=== PATIENT | female | born 1995 | race Hispanic/Latino ===

== ENCOUNTER 2020-06-30 13:52 | Emergency (ER) | payer SELFPAY ==
--- NOTE | 2020-06-30 14:30 | RAD REPORT ---
EXAM DESCRIPTION: Yumiko Single View06/30/2020 2:24 pm CLINICAL HISTORY: CVA COMPARISON: 2007 FINDINGS: The lungs appear clear of acute infiltrate. The heart is normal size IMPRESSION: No acute abnormalities displayed
[2020-06-30] MEDS ORDERED: NA CHLORIDE 0.9% 1,000 ML ONE (14:32)
[2020-06-30 14:33] LABS: Absolute Lymphocytes (CBC) 2.8 K/uL (0.7-4.9); Basophils % 0.8 % (0-1.3); Hematocrit 41.6 % (36.0-45.0); Lymphocytes % 25.9 % (15.3-44.8); MPV 7.6 fL (7.6-11.3); RBC Red Blood Cell Count 4.65 M/uL (3.86-4.86)
[2020-06-30 14:37] LABS: Protime INR 0.97
--- NOTE | 2020-06-30 14:40 | RAD REPORT ---
EXAM DESCRIPTION: CT - Ct Stroke Brain Wo Cont - 06/30/2020 2:03 pm CLINICAL HISTORY: Confusion/alteration of awareness COMPARISON: 2013 TECHNIQUE: Computed axial tomography of the head was obtained. All CT scans are performed using dose optimization technique as appropriate and may include automated exposure control or mA/KV adjustment according to patient size. FINDINGS: An intracranial bleed is not seen . The ventricles are normal in caliber. No extra-axial fluid collection is noted. Fluid within the sinuses/ mastoids is not seen. IMPRESSION: No acute intracranial abnormality is seen. If patient's symptoms persist MRI of the bra in would be recommended. Dr Clark of the emergency room was notified at 2 p.m. June 30, 2020
[2020-06-30 14:50] LABS: BUN Blood Urea Nitrogen 12 mg/dL (7-18); Bicarbonate 23 mmol/L (21-32); Glucose Level 87 mg/dL (74-106); Lipase 41 U/L (73-393); Magnesium 2.2 mg/dL (1.8-2.4); Sodium Level 141 mmol/L (136-145); Troponin (Emerg Dept Use Only) < 0.02 ng/mL (0.0-0.045)
--- NOTE | 2020-06-30 15:24 | EDPHYS ---
Physician Documentation [facility] Name: Jennifer Celeste Age: 25 yrs Sex: Female : 1995 Arrival Date: 06/30/2020 Time: 13:53 Bed 4 Private MD: ED Physician Amena Clark HPI: 06/30 14:02 This 25 yrs old Female presents to ER via EMS with complaints of S/S of ma2 Possible Stroke. 14:02 The patient's problem is reported as visual difficulty, decreased vision in the left ma2 eye. Onset: The symptoms/episode began/occurred suddenly, 1 hour(s) ago. Duration: This was a single incident. Associated signs and symptoms: Pertinent negatives: agitation, chest pain, combativeness, confusion, diaphoresis. Severity of symptoms: At their worst the symptoms were mild in the emergency department the symptoms have improved markedly. The patient has not experienced similar symptoms in the past. 14:51 she states she has generalized weakness since 1 hour ago and right sided facial ma2 weakness that is affecting her ability to speak, she also feels lightheaded and "tired". her at bedside he states they both have been drinking alcohol heavily over the last 2 days until 4 am last night. he states "absolutely" on MJ or cocaine or recreation drugs.. however patient told the nurse that she smokes MJ 3 times weekly with and no other recreational drugs . 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 - Social history:: Patient/guardian denies using alcohol, street drugs, The patient lives with family, Smoking status: Patient denies any tobacco usage or history of. - Family history:: not pertinent. ROS: 14:02 Constitutional: Negative for fever, chills, and weight loss, Cardiovascular: Negative ma2 for chest pain, palpitations, and edema, Respiratory: Negative for shortness of breath, cough, wheezing, and pleuritic chest pain, Abdomen/GI: Negative for abdominal pain, nausea, diarrhea, and constipation. 14:02 All other systems are negative. Exam: 14:02 Radiologist reports: normal ma2 14:02 Constitutional: This is a well developed, well nourished patient who is awake, alert, and in no acute distress. Head/Face: Normocephalic, atraumatic. Eyes: Pupils equal round and reactive to light, extra-ocular motions intact. Lids and lashes normal. Conjunctiva and sclera are non-icteric and not injected. Cornea within normal limits. Periorbital areas with no swelling, redness, or edema. ENT: Nares patent. No nasal discharge, no septal abnormalities noted. Tympanic membranes are normal and external auditory canals are clear. Oropharynx with no redness, swelling, or masses, exudates, or evidence of obstruction, uvula midline. Mucous membranes moist. Neck: Trachea midline, no thyromegaly or masses palpated, and no cervical lymphadenopathy. Supple, full range of motion without nuchal rigidity, or vertebral point tenderness. No Meningismus. Chest/axilla: Normal chest wall appearance and motion. Nontender with no deformity. No lesions are appreciated. Cardiovascular: Regular rate and rhythm with a normal S1 and S2. No gallops, murmurs, or rubs. Normal PMI, no JVD. No pulse deficits. Respiratory: Lungs have equal breath sounds bilaterally, clear to auscultation and percussion. No rales, rhonchi or wheezes noted. No increased work of breathing, no retractions or nasal flaring. Abdomen/GI: Soft, non-tender, with normal bowel sounds. No distension or tympany. No guarding or rebound. No evidence of tenderness throughout. Back: No spinal tenderness. No costovertebral tenderness. Full range of motion. Skin: Warm, dry with normal turgor. Normal color with no rashes, no lesions, and no evidence of cellulitis. MS/ Extremity: Pulses equal, no cyanosis. Neurovascular intact. Full, normal range of motion. 14:51 Neuro: Awake but seems drousy, GCS 14, oriented to person, place, time, and situation. ma2 Cranial nerves exams shows right sided facial nerve palsy that includes the forehead i.e lower motor neuron pattern, and she has left sixth cranial nerve palsy.. she has diffuse weakness , Motor strength is 3/5 in all extremities. Sensory grossly intact. Cerebellar exam and gait not examined d/t patietn is drwosy. Vital Signs: 14:06 BP 113 / 90; Pulse 63; Resp 16; Temp 98.1; Pulse Ox 100% on R/A; Weight 79.38 kg; Pain hb 0/10; 15:00 BP 118 / 86; Pulse 64; Resp 15; Pulse Ox 99% on R/A; hb 16:00 BP 129 / 89; Pulse 61; Resp 15; Pulse Ox 99% on R/A; hb 17:00 BP 124 / 85; Pulse 66; Resp 16; Pulse Ox 100% on R/A; Pain 0/10; hb NIH Stroke Scale Scores: 15:13 NIHSS Score: 21 ma2 MDM: 13:59 Patient medically screened. [facility] 14:02 Differential diagnosis: Dementia, paralysis, metabolic disorder, drug effects. [facility] 14:51 Data reviewed: vital signs, nurses notes. Counseling: I had a detailed discussion with [facility] the patient and/or guardian regarding: the historical points, exam findings, and any diagnostic results supporting the discharge/admit diagnosis, the presence of at least one elevated blood pressure reading (>120/80) during this emergency department visit, the need to transfer to another facility. Response to treatment: There is no appreciated change of the patient's symptoms at this time. 15:06 ED course: . [facility] 15:06 ED course: she has weakness all over 3/5 both upper and lower extremities. and facial ma2 nerve palsy and sixth nerve palsy.. given the finding on exam and rapidly improving symptoms, and the fact that she woke up like his an hour prior to arrival to hospital and having drinking alcohol last night until 4 am. it is not clear when was she seen normal.. therefore we will hold off thrombolytics as risk weigh benefits. will transfer for higher level of care as she needs neuro eval.. no neurology available in our hospital . 15:18 ED course: discussed with dr. potter and dr. Greene neurologists and patient is accepted ma to the ER. . 06/30 14:01 Order name: UDS ma2 06/30 14:01 Order name: Troponin (emerg Dept Use Only); Complete Time: 14:51 [facility] 06/30 14:01 Order name: Magnesium; Complete Time: 14:51 [facility] 06/30 14:01 Order name: Lipase; Complete Time: 14:51 [facility] 06/30 14:01 Order name: Basic Metabolic Panel; Complete Time: 14:51 ma2 06/30 14:01 Order name: CBC with Diff; Complete Time: 14:51 dc2 06/30 14:01 Order name: Protime (+inr); Complete Time: 14:51 ma2 06/30 14:01 Order name: Ptt, Activated; Complete Time: 14:51 ma2 06/30 14:01 Order name: CT Stroke Brain w/o Contrast; Complete Time: 14:51 ma2 06/30 14:01 Order name: Stroke CXR 1 View; Complete Time: 14:33 ma2 06/30 14:26 Order name: Alcohol Level; Complete Time: 15:24 ma2 06/30 14:29 Order name: Glucose, Ancillary Testing; Complete Time: 14:33 EDMS 06/30 15:51 Order name: Urine Dipstick--Ancillary (enter results) eb 06/30 15:51 Order name: Urine --Ancillary (enter results) eb 06/30 14:01 Order name: Accucheck; Complete Time: 14:22 ma2 06/30 14:01 Order name: Cardiac monitoring; Complete Time: 14:22 ma2 06/30 14:01 Order name: EKG - Nurse/Tech; Complete Time: 16:29 ma2 06/30 14:01 Order name: IV Saline Lock; Complete Time: 14:22 dc2 06/30 14:01 Order name: Labs collected and sent; Complete Time: 14:22 ma2 06/30 14:01 Order name: NPO; Complete Time: 14:22 dc2 06/30 14:01 Order name: O2 Per Protocol; Complete Time: 14:22 ma2 06/30 14:01 Order name: O2 Sat Monitoring; Complete Time: 14:22 dc2 06/30 14:01 Order name: Stroke Swallow Screen; Complete Time: 16:29 ma2 Administered Medications: 14:32 Drug: NS 0.9% 1000 ml Route: IV; Rate: 1 bolus; Site: left hand; sv 15:40 Follow up: Response: No adverse reaction; IV Status: Completed infusion; IV Intake: hb 1000ml 14:33 CANCELLED (Physician Discretion): Ativan 1 mg IVP once sv Point of Care Testing: Blood Glucose: 14:20 Blood Glucose: 83 mg/dL; hb Ranges: Critical Glucose Levels:Adult <50 mg/dl or >400 mg/dl <40 mg/dl or >180 mg/dl Disposition: 06/30/20 15:24 Transfer ordered to [facility]. Diagnosis are Weakness, Disorder of facial nerve, unspecified - facial palsy. - Reason for transfer: Higher level of care. - Accepting physician is dr. Greene.. Dr. Cohn. - Condition is Stable. - Problem is new. - Symptoms are unchanged. NIH Stroke Scale - NIH Stroke Score Date: 06/30/2020 Time: 15:13 Total Score = 21 1a. Level of Consciousness (LOC) - 1(Not Alert) 1b. Level of Consciousness (LOC) (Year \\T\\ Age) - 2(Neither) 1c. LOC Commands (Open \\T\\ Closes Eyes/Pipe Washer) - 0(Both) 2. Best Gaze (Lateral Gaze Paresis) - 1(Partial gaze palsy) 3. Visual Field Loss - 0(No visual loss) 4. Facial Palsy - 2(Partial paralysis) 5a. Left Arm: Motor (10-second hold) - 3(No effort against gravity) 5b. Right Arm: Motor (10-second hold) - 3(No effort against gravity) 6a. Left Leg: Motor (5-second hold - always test supine) - 3(No effort against gravity) 6b. Right Leg: Motor (5-second hold - always test supine) - 3(No effort against gravity) 7. Limb Ataxia (finger/nose \\T\\ heel/johnson - test with eyes open) - 2(Present in two limbs) 8. Sensory Loss (pinprick arms/legs/face) - 0(Normal) 9. Best Language: Aphasia (description/naming/reading) - 1(Mild to moderate aphasia) 10. Dysarthria (speech clarity - read or repeat words) - 0(Normal) 11. Extinction and Inattention (visual/tactile/auditory/spatial/personal) - 0(No abnormality) Initials: vangie Signatures: Dispatcher [employer] Patricia Martinez RN RN sv Smirch, Shelby, RN RN ss Baxter, Heather, RN RN hb Alzahri, Mohammad, MD MD ma2 Corrections: (The following items were deleted from the chart) 14:33 14:01 Ativan 1 mg IVP once ordered. ma2 sv 14:33 14:33 Ativan 1 mg IVP once ordered. sv sv 15:10 14:02 Constitutional: This is a well developed, well nourished patient who is ma2 awake, alert, and in no acute distress. Head/Face: Normocephalic, atraumatic. Eyes: Pupils equal round and reactive to light, extra-ocular motions intact. Lids and lashes normal. Conjunctiva and sclera are non-icteric and not injected. Cornea within normal limits. Periorbital areas with no swelling, redness, or edema. ENT: Nares patent. No nasal discharge, no septal abnormalities noted. Tympanic membranes are normal and external auditory canals are clear. Oropharynx with no redness, swelling, or masses, exudates, or evidence of obstruction, uvula midline. Mucous membranes moist. Neck: Trachea midline, no thyromegaly or masses palpated, and no cervical lymphadenopathy. Supple, full range of motion without nuchal rigidity, or vertebral point tenderness. No Meningismus. Chest/axilla: Normal chest wall appearance and motion. Nontender with no deformity. No lesions are appreciated. Cardiovascular: Regular rate and rhythm with a normal S1 and S2. No gallops, murmurs, or rubs. Normal PMI, no JVD. No pulse deficits. Respiratory: Lungs have equal breath sounds bilaterally, clear to auscultation and percussion. No rales, rhonchi or wheezes noted. No increased work of breathing, no retractions or nasal flaring. Abdomen/GI: Soft, non-tender, with normal bowel sounds. No distension or tympany. No guarding or rebound. No evidence of tenderness throughout. Back: No spinal tenderness. No costovertebral tenderness. Full range of motion. Skin: Warm, dry with normal turgor. Normal color with no rashes, no lesions, and no evidence of cellulitis. MS/ Extremity: Pulses equal, no cyanosis. Neurovascular intact. Full, normal range of motion. Neuro: Awake and alert, GCS 15, oriented to person, place, time, and situation. Cranial nerves II-XII grossly intact. Motor strength 5/5 in all extremities. Sensory grossly intact. Cerebellar exam normal. Normal gait. dc2 15:10 14:51 Neuro: Awake but seems drousy, GCS 14, oriented to person, place, time, ma2 and situation. Cranial nerves exams shows right sided facial nerve palsy that includes the forehead.. she has diffuse weakness , Motor strength is 3/5 in all extremities. Sensory grossly intact. Cerebellar exam and gait not examined d/t patietn is keisha. ma2 17:18 15:24 06/30/2020 15:24 Transfer ordered to [facility]. Diagnosis ss is Weakness; Disorder of facial nerve, unspecified - facial palsy. Reason for transfer: Higher level of care. Accepting physician is dr. Greene.. Dr. Cohn. Condition is Stable. Problem is new. Symptoms are unchanged. ma2
--- NOTE | 2020-06-30 15:24 | ER ---
Nurse's Notes [facility] Name: Jennifer Celeste Age: 25 yrs Sex: Female : 1995 Arrival Date: 06/30/2020 Time: 13:53 Bed 4 Private MD: Diagnosis: Weakness;Disorder of facial nerve, unspecified-facial palsy Presentation: 06/30 13:42 The patients blood glucose was checked before arriving to the hospital and was found to sv be normal. 13:54 Chief complaint: EMS states: slurred speech, left arm weakness, unable to see out of sv the left eye started 35 mins ago. Spouse stated to EMS that they had been drinking days prior but none today. An acute neurological deficit is present. The charge nurse has been notified. Risk Assessment: Do you want to hurt yourself or someone else? Patient reports no desire to harm self or others. Onset of symptoms was June 30, 2020. 13:54 Method Of Arrival: EMS: [facility] sv 13:54 Acuity: JONNY 2 sv 14:30 Coronavirus screen: At this time, the client does not indicate any symptoms associated hb with coronavirus-19. Ebola Screen: No symptoms or risks identified at this time. Initial Sepsis Screen: Does the patient meet any 2 criteria? No. Patient's initial sepsis screen is negative. Does the patient have a suspected source of infection? No. Patient's initial sepsis screen is negative. Triage Assessment: 17:00 General: Appears. 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 - Social history:: Patient/guardian denies using alcohol, street drugs, The patient lives with family, Smoking status: Patient denies any tobacco usage or history of. - Family history:: not pertinent. Screenin:31 Abuse screen: Denies threats or abuse. Denies injuries from another. Nutritional ss screening: No deficits noted. Tuberculosis screening: Never had TB. Fall Risk Fall in past 12 months (25 points). Secondary diagnosis (15 points) impaired mobility, IV access (20 points). Ambulatory Aid- None/Bed Rest/Nurse Assist (0 pts). Gait- Normal/Bed Rest/Wheelchair (0 pts) Mental Status- Oriented to own ability (0 pts). 16:29 Patient has been NPO before screening. The patient is alert, able to follow commands. hb The patient does not exhibit slurred or garbled speech The patient is not exhibiting difficulty speaking. The patient does not exhibit difficulty understanding words. The patient is able to swallow own secretions with no drooling or need for suction. Patient tolerated one teaspoon of water. No drooling, immediate coughing, gurgling, or clearing of the throat was noted. The patient tolerated 90mL of water. No drooling, immediate coughing, gurgling, or clearing of the throat was noted. The patient passed the bedside swallow screening. Oral medications may be given as ordered. Contact Physician for further diet orders. Assessment: 13:58 Reassessment: Pt back from CT. sv 14:17 Reassessment: BGL 83. hb 14:30 Reassessment: Pt reports she went to bed at 0300 and woke up at 1130 today c/o ss dizziness and fell because she was dizzy at 1150. Denies pain. 15:00 Reassessment: Patient appears in no apparent distress at this time. No changes from hb previously documented assessment. Patient and/or family updated on plan of care and expected duration. Pain level reassessed. 16:10 Reassessment: Patient appears in no apparent distress at this time. No changes from hb previously documented assessment. Patient and/or family updated on plan of care and expected duration. Pain level reassessed. 17:00 Reassessment: Patient appears in no apparent distress at this time. Patient and/or hb family updated on plan of care and expected duration. Pain level reassessed. Patient is alert, oriented x 3, equal unlabored respirations, skin warm/dry/pink. Vital Signs: 14:06 BP 113 / 90; Pulse 63; Resp 16; Temp 98.1; Pulse Ox 100% on R/A; Weight 79.38 kg; Pain hb 0/10; 15:00 BP 118 / 86; Pulse 64; Resp 15; Pulse Ox 99% on R/A; hb 16:00 BP 129 / 89; Pulse 61; Resp 15; Pulse Ox 99% on R/A; hb 17:00 BP 124 / 85; Pulse 66; Resp 16; Pulse Ox 100% on R/A; Pain 0/10; hb NIH Stroke Scale Scores: 15:13 NIHSS Score: 21 ma2 ED Course: 13:53 Patient arrived in ED. ds1 13:59 Amena Clark MD is Attending Physician. ma2 14:00 Triage completed. sv 14:01 Arm band placed on. sv 14:04 CT Stroke Brain w/o Contrast In Process Unspecified. EDMS 14:16 Missed attempt(s): 20 gauge in left antecubital area. Bleeding controlled, band aid hb applied, catheter tip intact. 14:18 Inserted saline lock: 22 gauge in left hand, using aseptic technique. Blood collected. hb 14:18 Inserted saline lock: 22 gauge in right upper arm, using aseptic technique. hb 14:19 Lalitha Gan, RN is Primary Nurse. hb 14:22 Stroke CXR 1 View Sent. hb 14:24 Stroke CXR 1 View In Process Unspecified. EDMS 14:31 Patient has correct armband on for positive identification. Placed in gown. Bed in low ss position. Call light in reach. Side rails up X2. monitoring tech on. Pulse ox on. NIBP on. Warm blanket given. 15:05 initiated a transfer with Laquita Gates Rn from the [facility]. eb 15:14 connected the neuro team environmental consultant for [facility] with Dr. Clark for patient eb transfer consultation. 15:22 administrative approval given by Laquita Gates Rn/ patient has been accepted to [facility] Er/ Dr. Guido has accepted the patient in transfer/ report to be called to [phone]. 17:00 No provider procedures requiring assistance completed. Patient transferred, IV remains hb in place. Administered Medications: 14:32 Drug: NS 0.9% 1000 ml Route: IV; Rate: 1 bolus; Site: left hand; sv 15:40 Follow up: Response: No adverse reaction; IV Status: Completed infusion; IV Intake: hb 1000ml 14:33 CANCELLED (Physician Discretion): Ativan 1 mg IVP once sv Point of Care Testing: Blood Glucose: 14:20 Blood Glucose: 83 mg/dL; hb Ranges: Intake: 15:40 IV: 1000ml; Total: 1000ml. hb Outcome: 15:24 ER care complete, transfer ordered by . ma2 17:[address] [facility]. hb 17:00 Condition: stable 17:00 Instructed on the need for transfer, Demonstrated understanding of instructions. 17:18 Patient left the ED. NIH Stroke Scale - NIH Stroke Score Date: 06/30/2020 Time: 15:13 Total Score = 21 1a. Level of Consciousness (LOC) - 1(Not Alert) 1b. Level of Consciousness (LOC) (Year \T\ Age) - 2(Neither) 1c. LOC Commands (Open \T\ Closes Eyes/Plumber) - 0(Both) 2. Best Gaze (Lateral Gaze Paresis) - 1(Partial gaze palsy) 3. Visual Field Loss - 0(No visual loss) 4. Facial Palsy - 2(Partial paralysis) 5a. Left Arm: Motor (10-second hold) - 3(No effort against gravity) 5b. Right Arm: Motor (10-second hold) - 3(No effort against gravity) 6a. Left Leg: Motor (5-second hold - always test supine) - 3(No effort against gravity) 6b. Right Leg: Motor (5-second hold - always test supine) - 3(No effort against gravity) 7. Limb Ataxia (finger/nose \T\ heel/johnson - test with eyes open) - 2(Present in two limbs) 8. Sensory Loss (pinprick arms/legs/face) - 0(Normal) 9. Best Language: Aphasia (description/naming/reading) - 1(Mild to moderate aphasia) 10. Dysarthria (speech clarity - read or repeat words) - 0(Normal) 11. Extinction and Inattention (visual/tactile/auditory/spatial/personal) - 0(No abnormality) Initials: ma2 Signatures: Dispatcher [employer] Patricia Martinez, Lina Wade RN, Shelby, RN RN Lalitha Gan RN RN Amena Clark MD MD ma2 Sosa Pina Corrections: (The following items were deleted from the chart) 15:24 15:05 initiated a transfer with Laquita Ruff Rn from the [facility]. eb
[2020-06-30 15:54] LABS: Urine Blood TRACE (NEG); Urine Glucose NEGATIVE (NEG); Urine Protein NEGATIVE (NEG)
[2020-06-30 16:03] LABS: Barbiturates NEGATIVE (NEGATIVE); Benzodiazepines NEGATIVE (NEGATIVE); Cocaine NEGATIVE (NEGATIVE); METHAMPHETAM NEGATIVE (NEGATIVE); Methadone NEGATIVE (NEGATIVE); Opiates NEGATIVE (NEGATIVE); Phencyclidine NEGATIVE (NEGATIVE); THC Cannibis POSITIVE (NEGATIVE)
[2020-07-03 19:37] VITALS: TEMP 98.1
[2020-07-03 19:40] VITALS: BP 124/85; O2SAT 100
== END 2020-06-30 17:18 | disposition short-term general hospital (02) ==
LOC: ER 13:52
DX: G51.0 Bell's palsy (principal)
CPT/HCPCS: 36415; 70450; 71045; 80048; 80307; 80320; 81003; 81025; 82947; 83690; 83735; 84484; 85025; 85610; 85730; 96360; 99285; J7030

== ENCOUNTER 2021-03-26 07:32 | Emergency (ER) | payer OTHER ==
--- OUTSIDE RECORDS SUMMARY | 2021-03-26 07:35 | XMS REPORT | Continuity of Care Document ---
:1995 Author Organization [facility] t Address [address] [place] [address] Care Team Providers Name Role Phone Unavailable Unavailable Unavailable Problems This patient has no known problems. Allergies, Adverse Reactions, Alerts This patient has no known allergies or adverse reactions. Medications Ordered Filled Start Stop Current Ordering Indication Dosage Frequency Signature Comments Components Source Medication Medication Date Date Medication? Clinician (SIG) Name Name Atorvastati Atorvastati Yes Will TAKE [address] [facility] Calcium n Calcium [place] TABLET BY [facility] EVERY DAY l AT BEDTIME Outpati ent Clinics Aspir-81 Aspir-81 Yes Will [address] [facility] Procedures This patient has no known procedures. Encounters Start End Encounter Admission Attending Care Care Encounter Source Date/Time Date/Time Type Type Clinicians Facility Department ID 2020-09-23 2020-09-23 Outpatient [facility] [id number] [facility] 2020-07-15 2020-07-15 [facility] [id number] [facility] [address] 11[facility]00 11:00[facility]00 [facility] [facility] Outpati ent Clinics Results This patient has no known results.
[2021-03-26 08:08] LABS: Urine Blood 1+ (Negative); Urine Glucose Negative (Negative); Urine Specific Gravity 1.025 (1.005-1.030)
[2021-03-26 08:09] LABS: Urine Protein Negative (Negative); Urine pH 5.5 (5.0-7.0)
[2021-03-26 08:32] LABS: Absolute Lymphocytes (CBC) 1.3 K/uL (0.7-4.9); Basophils % 0.3 % (0-1.3); Hematocrit 40.8 % (36.0-45.0); Lymphocytes % 8.8 % (15.3-44.8); MPV 7.8 fL (7.6-11.3); RBC Red Blood Cell Count 4.58 M/uL (3.86-4.86)
[2021-03-26] MEDS ORDERED: HYDROCODONE/CHLORPHEN 5 ML/OSYR ONE (08:33)
[2021-03-26] MEDS ORDERED: ACETAMINOPHEN 325 MG TABLET ONE (08:33)
[2021-03-26 09:00] LABS: BUN Blood Urea Nitrogen 14 mg/dL (7-18); Bicarbonate 24 mmol/L (21-32); Glucose Level 100 mg/dL (74-106); Potassium 3.9 mmol/L (3.5-5.1); Sodium Level 138 mmol/L (136-145)
[2021-03-26 09:01] LABS: Urine Specific Gravity/Preg 1.025 (1.005-1.030)
--- NOTE | 2021-03-26 10:20 | ER ---
Nurse's Notes [facility] Name: Jennifer Celeste Age: 25 yrs Sex: Female : 1995 Arrival Date: 03/26/2021 Time: 07:36 Bed 20 Private MD: Diagnosis: Acute pharyngitis. Leukocytosis Presentation: 03/26 07:41 Chief complaint: Patient states: sore throat, chest pain, productive cough-clear sv sputum, frontal headache x 2-3 days. Coronavirus screen: Client denies travel out of the [place] in the last 14 days. Client presents with at least one sign or symptom that may indicate coronavirus-19. Standard/surgical mask placed on the client. Provider contacted for isolation considerations. Ebola Screen: No symptoms or risks identified at this time. Risk Assessment: Do you want to hurt yourself or someone else? Patient reports no desire to harm self or others. Onset of symptoms was March 23, 2021. 07:41 Method Of Arrival: Ambulatory sv 07:41 Acuity: JONNY 3 sv 08:10 Initial Sepsis Screen: Does the patient meet any 2 criteria? No. Patient's initial kg sepsis screen is negative. Does the patient have a suspected source of infection? No. Patient's initial sepsis screen is negative. Triage Assessment: 07:43 General: Appears in no apparent distress. uncomfortable, Behavior is calm, cooperative, sv appropriate for age. EENT: Reports pain in throat. Neuro: Level of Consciousness is awake, alert, obeys commands, Gait is steady. Respiratory: Respiratory effort is even, unlabored. 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 - Social history:: Smoking status: Patient reports the use of cigarette tobacco products, denies chronic smoking, but will smoke occasionally. Screenin:09 Abuse screen: Denies threats or abuse. Denies injuries from another. Nutritional kg screening: No deficits noted. Tuberculosis screening: No symptoms or risk factors identified. Fall Risk None identified. No fall in past 12 months (0 pts). No secondary diagnosis (0 pts). IV access (20 points). Ambulatory Aid- None/Bed Rest/Nurse Assist (0 pts). Gait- Normal/Bed Rest/Wheelchair (0 pts) Mental Status- Oriented to own ability (0 pts). Total Narayanan Fall Scale indicates No Risk (0-24 pts). Assessment: 07:58 General: Appears in no apparent distress. Behavior is calm, cooperative, appropriate kg for age. Pain: Complains of pain in neck Pain does not radiate. Pain currently is 6 out of 10 on a pain scale. at worst was 8 out of 10 on a pain scale. level that patient reports is acceptable is 3 out of 10 on a pain scale. Quality of pain is described as "Feels like I'm swallowing glass" Pain began 2-3 days ago. Neuro: No deficits noted. Level of Consciousness is awake, alert, obeys commands, Oriented to person, place, time, situation. Cardiovascular: No deficits noted. Heart tones S1 S2. Respiratory: Reports cough that is productive, Airway is patent Respiratory effort is even, unlabored, relaxed, Respiratory pattern is regular, Breath sounds are clear bilaterally. GI: No deficits noted. : No deficits noted. EENT: Throat is pink has enlarged tonsils Reports difficulty swallowing since one week. Derm: No deficits noted. Musculoskeletal: No deficits noted. 09:55 Reassessment: Patient and/or family updated on plan of care and expected duration. Pain ap3 level reassessed. patient ambulated to restroom. . Vital Signs: 07:41 Weight 74.84 kg; Height 5 ft. 0 in. (152.40 cm); Pain 7/10; sv 08:09 Temp 99.3(O); kg 08:51 BP 122 / 91; Pulse 118; Pulse Ox 100% on R/A; ap3 09:52 BP 110 / 75; Pulse 71; Pulse Ox 97% on R/A; ap3 07:41 Body Mass Index 32.22 (74.84 kg, 152.40 cm) sv ED Course: 07:36 Patient arrived in ED. mr 07:42 Triage completed. sv 07:43 Arm band placed on. sv 07:49 Fay Talbert is Primary Nurse. kg 07:49 Tom Mckeon MD is Attending Physician. pkl 08:10 Patient has correct armband on for positive identification. Placed in gown. Bed in low kg position. Call light in reach. Side rails up X 1. 08:15 Inserted saline lock: 20 gauge in right upper arm, using aseptic technique. kg 08:43 XRAY CXR (1 view) In Process Unspecified. EDMS 10:14 Throat Culture Sent. sv 10:26 No provider procedures requiring assistance completed. Patient did not have IV access ap3 during this emergency room visit. intact, bleeding controlled, No redness/swelling at site. Pressure dressing applied. Administered Medications: 08:16 Drug: Tylenol 650 mg Route: PO; ap3 09:46 Follow up: Response: No adverse reaction; Marked relief of symptoms kg 08:16 Drug: Tussionex Pennkinetic ER (chlorpheniramine-hydrocodone) 5 ml Route: PO; ap3 09:46 Follow up: Response: No adverse reaction; Marked relief of symptoms kg Outcome: 10:20 Discharge ordered by . pkl 10:27 Discharged to home ambulatory. ap3 10:27 Condition: good 10:27 Discharge instructions given to patient, Instructed on discharge instructions, follow up and referral plans. no drinking with medication, medication usage, Demonstrated understanding of instructions, follow-up care, medications, Prescriptions given X 1. 10:29 Patient left the ED. ap3 Signatures: Dispatcher [employer] Patricia Martinez, Tom Brown RN, MD MD pkl Maria Isabel Milan mr Mya Avalos RN RN ap3 Fay Talbert kg
--- NOTE | 2021-03-26 10:20 | EDPHYS ---
Physician Documentation [facility] Name: Jennifer Celeste Age: 25 yrs Sex: Female : 1995 Arrival Date: 03/26/2021 Time: 07:36 Bed 20 Private MD: ED Physician Tom Mckeon HPI: 03/26 08:01 This 25 yrs old Female presents to ER via Ambulatory with complaints of Cough, pkl Sore Throat. 08:01 The patient or guardian reports cough, with productive sputum, that is white. Onset: pkl The symptoms/episode began/occurred 2 day(s) ago. Associated signs and symptoms: Pertinent positives: rhinorrhea, sore throat. 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 - Social history:: Smoking status: Patient reports the use of cigarette tobacco products, denies chronic smoking, but will smoke occasionally. ROS: 08:01 Eyes: Negative for injury, pain, redness, and discharge. pkl 08:01 ENT: Positive for nasal discharge, sore throat. 08:01 Neck: Negative for stiffness. 08:01 Cardiovascular: Negative for chest pain. 08:01 Respiratory: Positive for cough, with clear sputum. 08:01 Abdomen/GI: Negative for abdominal pain, nausea, vomiting, and diarrhea. 08:01 Back: Negative for acute changes. 08:01 : Negative for urinary symptoms. 08:01 MS/extremity: Negative for acute changes. 08:01 Skin: Negative for rash. 08:01 Neuro: Positive for headache, of the frontal. Exam: 08:01 Head/Face: Normocephalic, atraumatic. Eyes: Pupils equal round and reactive to light, pkl extra-ocular motions intact. Lids and lashes normal. Conjunctiva and sclera are non-icteric and not injected. Cornea within normal limits. Periorbital areas with no swelling, redness, or edema. 08:01 ENT: Posterior pharynx: erythema, that is mild. 08:01 Neck: Exam negative for nuchal rigidity. 08:01 Chest/axilla: Exam negative for acute changes. 08:01 Cardiovascular: Rate: normal, Rhythm: regular. 08:01 Respiratory: the patient does not display signs of respiratory distress, Respirations: normal, Breath sounds: are clear throughout. 08:01 Abdomen/GI: Bowel sounds: normal, Palpation: abdomen is soft and non-tender, in all quadrants. 08:01 Back: Exam negative for acute changes. 08:01 : Exam negative for acute changes. 08:01 Musculoskeletal/extremity: Exam is negative for acute changes. 08:01 Skin: Exam negative for rash. 08:01 Neuro: Orientation: is normal, Mentation: is normal, Cranial nerves: grossly normal, Motor: is normal. Vital Signs: 07:41 Weight 74.84 kg; Height 5 ft. 0 in. (152.40 cm); Pain 7/10; sv 08:09 Temp 99.3(O); kg 08:51 BP 122 / 91; Pulse 118; Pulse Ox 100% on R/A; ap3 09:52 BP 110 / 75; Pulse 71; Pulse Ox 97% on R/A; ap3 07:41 Body Mass Index 32.22 (74.84 kg, 152.40 cm) sv MDM: 07:49 Patient medically screened. pkl 10:17 Data reviewed: vital signs, nurses notes, lab test result(s), radiologic studies, plain pkl films. ED course: Discussed lab and X' rays results with patient. Advised to follow up with PCP in 2 to 3 days. Patient understood instructions. 03/26 08:00 Order name: CBC with Diff; Complete Time: 09:50 pkl 03/26 08:00 Order name: Chem 7; Complete Time: 09:50 pkl 03/26 08:00 Order name: Strep; Complete Time: 09:50 pkl 03/26 08:08 Order name: Urine Dipstick-Ancillary; Complete Time: 08:16 EDMS 03/26 08:18 Order name: Urine --Ancillary (enter results); Complete Time: 09:50 bd 03/26 08:00 Order name: XRAY CXR (1 view) pkl 03/26 09:21 Order name: Throat Culture EDMS Administered Medications: 08:16 Drug: Tylenol 650 mg Route: PO; ap3 09:46 Follow up: Response: No adverse reaction; Marked relief of symptoms kg 08:16 Drug: Tussionex Pennkinetic ER (chlorpheniramine-hydrocodone) 5 ml Route: PO; ap3 09:46 Follow up: Response: No adverse reaction; Marked relief of symptoms kg Disposition: 03/26/21 10:20 Discharged to Home. Impression: Acute pharyngitis. Leukocytosis. - Condition is Stable. - Prescriptions for Zithromax Z- Eloy 250 mg Oral Tablet - take 1 tablet by ORAL route as directed for 5 days Day 1 - take two (2) tablets one time. Day 2, 3, 4 , 5 take one (1) tablet once daily.; 6 tablet. - Medication Reconciliation Form, Thank You Letter, Antibiotic Education, Prescription Opioid Use, Family Work Release form. - Follow up: Private Physician; When: 2 - 3 days; Reason: Re-evaluation by your physician. - Problem is new. - Symptoms have improved. Signatures: Dispatcher [employer] Patricia Martinez RN RN Tom Mckeon MD MD pkl Mya Avalos RN RN ap3 Fya Talbert kg Corrections: (The following items were deleted from the chart) 10:29 10:20 03/26/2021 10:20 Discharged to Home. Impression: Acute pharyngitis. Leukocytosis. ap3 Condition is Stable. Forms are Medication Reconciliation Form, Thank You Letter, Antibiotic Education, Prescription Opioid Use. Follow up: Private Physician; When: 2 - 3 days; Reason: Re-evaluation by your physician. Problem is new. Symptoms have improved. pkl
--- NOTE | 2021-03-26 10:39 | RAD REPORT ---
EXAM DESCRIPTION: RAD - Chest Single View - 03/26/2021 8:42 am CLINICAL HISTORY: COUGH Chest pain. COMPARISON: Chest Single View dated 06/30/2020; CHEST PA AND LAT 2 VIEW dated 09/30/2008 FINDINGS: Portable technique limits examination quality. The lungs are grossly clear. The heart is normal in size. No displaced fractures. IMPRESSION: No acute intrathoracic process suspected.
[2021-03-26 10:52] VITALS: TEMP 99.3
[2021-03-26 10:56] VITALS: BP 110/75; O2SAT 97
== END 2021-03-26 10:29 | disposition home or self-care (01) ==
LOC: ER 07:32
DX: D72.829 Elevated white blood cell count, unspecified (principal); F17.210 Nicotine dependence, cigarettes, uncomplicated; Z86.73 Personal history of transient ischemic attack (TIA), and cerebral infarction without residual deficits
CPT/HCPCS: 36415; 71045; 80048; 81003; 81025; 85025; 87070; 87081; 99284

== ENCOUNTER 2021-09-04 17:01 | Emergency (ER) | payer OTHER ==
[2021-09-04] MEDS ORDERED: DICYCLOMINE HCL 10 MG CAP ONE (17:55)
[2021-09-04] MEDS ORDERED: NA CHLORIDE 0.9% 500 ML ONE (17:55)
[2021-09-04] MEDS ORDERED: ACETAMINOPHEN 500 MG TAB ONE (17:55)
[2021-09-04 18:11] LABS: Absolute Lymphocytes (CBC) 2.9 K/uL (0.7-4.9); Basophils % 0.5 % (0-1.3); Hematocrit 39.9 % (36.0-45.0); Lymphocytes % 17.8 % (15.3-44.8); MPV 7.3 fL (7.6-11.3); RBC Red Blood Cell Count 4.44 M/uL (3.86-4.86)
[2021-09-04 18:16] LABS: Urine RBC <5 /HPF (NONE SEEN)
[2021-09-04 18:17] LABS: Urine Bacteria >50 /HPF (<20)
[2021-09-04 18:25] LABS: BUN Blood Urea Nitrogen 11 mg/dL (7-18); Bicarbonate 24 mmol/L (21-32); Glucose Level 87 mg/dL (74-106); Potassium 3.6 mmol/L (3.5-5.1); Sodium Level 137 mmol/L (136-145)
[2021-09-04] MEDS ORDERED: AZITHROMYCIN 250 MG TAB ONE (18:31)
[2021-09-04] MEDS ORDERED: CEFTRIAXONE 250 MG/VIAL ONE (18:31)
[2021-09-04 18:55] LABS: HCG, Quantitative 59527 mIU/mL (1-3)
--- NOTE | 2021-09-04 19:12 | RAD REPORT ---
EXAM DESCRIPTION: US - Transvaginal OB - 09/04/2021 6:37 pm CLINICAL HISTORY: Abd pain;Vaginal bleeding COMPARISON: CT ABD PELVIS W CONTRAST dated 09/02/2012FETAL MATMarilyn [place]. TM1 dated 01/18/2009 FINDINGS: Single viable IUP with positive heart tones. A crown-rump length measures 1.8 cm. Th is is consistent with 8 week 1 day. The heart rate is measured at 159 beats per minute. The lef t ovary measures 2.1 x 2.7 x 2.3 cm with volume of 6.6 cc. The right ovary was not visualized. IMPRESSION: Single viable IUP with positive heart tones measuring 8 weeks 1 day with estimated delivery of 04/15/2022. Vascular flow is present within the left ovary. The right ovary was not visu alized.
[2021-09-04 19:33] LABS: Urine Specific Gravity/Preg >1.030 (1.005-1.030)
--- NOTE | 2021-09-04 20:48 | EDPHYS ---
Physician Documentation [facility] Name: Jennifer Celeste Age: 26 yrs Sex: Female : 1995 Arrival Date: 09/04/2021 Time: 17:03 Bed 18 Private MD: ED Physician Suleiman Oliver HPI: 09/04 17:10 This 26 yrs old Female presents to ER via Ambulatory with complaints of cp Vaginal Bleeding, + Preg <12wks. 17:10 The patient presents to the emergency department with abdominal pain, of the lower cp abdomen, vaginal bleeding, when wiping with tissue paper, vaginal discharge. The estimated gestational age is 9 weeks. course: care: at a clinic, Leakage of Fluid: none appreciated, Ultrasound: the patient has not had an ultrasound. Previous pregnancies: in previous pregnancies patient has had vaginal delivery. Associated signs and symptoms: Pertinent negatives: chest pain, diarrhea, dysuria, fever, ruptured membranes, vomiting. Patient reports concern for possible STD. Patient reports sexual partner may have other partners. 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 - Social history:: Smoking status: Patient denies any tobacco usage or history of. Patient/guardian denies using alcohol. ROS: 17:15 Constitutional: Negative for body aches, chills, fever, poor PO intake. cp 17:15 Eyes: Negative for injury, pain, redness, and discharge. cp 17:15 ENT: Negative for ear pain, sore throat, difficulty swallowing, difficulty handling secretions. 17:15 Cardiovascular: Negative for chest pain. 17:15 Respiratory: Negative for cough, shortness of breath, wheezing. 17:15 Abdomen/GI: Positive for abdominal pain, of the right lower quadrant and left lower quadrant, Negative for vomiting, diarrhea, constipation. 17:15 Back: Positive for radiated pain. 17:15 : Positive for pelvic pain, vaginal bleeding, vaginal discharge. 17:15 Skin: Negative for rash. 17:15 Neuro: Negative for altered mental status, headache, weakness. 17:15 All other systems are negative. Exam: 17:20 Constitutional: The patient appears in no acute distress, alert, awake, non-toxic, well cp developed, well nourished, uncomfortable. 17:20 Head/Face: Normocephalic, atraumatic. cp 17:20 Eyes: Periorbital structures: appear normal, Conjunctiva: normal, no exudate, no injection, Sclera: no appreciated abnormality, Lids and lashes: appear normal, bilaterally. 17:20 ENT: External ear(s): are unremarkable, Nose: is normal, Mouth: Lips: moist, Oral mucosa: moist, Posterior pharynx: Airway: no evidence of obstruction, patent. 17:20 Chest/axilla: Inspection: normal. 17:20 Cardiovascular: Rate: normal, Rhythm: regular. 17:20 Respiratory: the patient does not display signs of respiratory distress, Respirations: normal, no use of accessory muscles, no retractions, labored breathing, is not present, Breath sounds: are clear throughout, no decreased breath sounds, no stridor, no wheezing. 17:20 Abdomen/GI: Inspection: abdomen appears normal, Bowel sounds: active, all quadrants, Palpation: soft, in all quadrants, severe abdominal tenderness, in the suprapubic area and left lower quadrant, rebound tenderness, is not appreciated, voluntary guarding, is elicited in the suprapubic area and left lower quadrant. 17:20 Back: pain, that is moderate, of the low back area, ROM is normal. 18:28 : Pelvic Exam: External exam: is normal, Speculum exam: no bleeding is noted, no cp cervicitis, os that is closed, bimanual exam reveals cervical motion tenderness, no uterine tenderness, right adnexal tenderness, left adnexal tenderness, no adnexal mass on right, no adnexal mass on left, discharge, white, the nurse was present for the exam, Sexual behavior: the patient is sexually active, and reports a single partner. Vital Signs: 17:15 BP 126 / 83; Pulse 73; Resp 20; Temp 98.5(O); Pulse Ox 99% ; Weight 70.76 kg; Height 5 ld1 ft. 1 in. (154.94 cm); Pain 6/10; 17:30 BP 124 / 80; Pulse 75; Resp 16; Temp 98.4(O); Pulse Ox 100% on R/A; sl2 19:45 BP 122 / 71; Pulse 81; Resp 20; Pulse Ox 100% on R/A; cc4 21:15 BP 118 / 72; Pulse 68; Resp 16; Temp 98.3; Pulse Ox 100% ; Pain 2/10; dc2 17:15 Body Mass Index 29.48 (70.76 kg, 154.94 cm) ld1 MDM: 17:33 Patient medically screened. cp 18:00 Differential diagnosis: STD, ectopic , appendicitis, UTI, pyelonephritis. cp 20:45 Data reviewed: vital signs, nurses notes, lab test result(s), radiologic studies, plain cp films. 20:45 Counseling: I had a detailed discussion with the patient and/or guardian regarding: the cp historical points, exam findings, and any diagnostic results supporting the discharge/admit diagnosis, lab results, radiology results, the need for outpatient follow up, an OB/Gyne specialist, to return to the emergency department if symptoms worsen or persist or if there are any questions or concerns that arise at home. Response to treatment: the patient's symptoms have markedly improved after treatment, and as a result, I will discharge patient. Special discussion: Based on the patient's Hx, exam, and Dx evaluation, there is no indication for emergent surgery or inpatient Tx. It is understood by the patient/guardian that if the Sx's persist or worsen they need to return immediately for re-evaluation. 09/04 17: Order name: Urine Microscopic Only; Complete Time: 18:30 rn 09/04 19:04 Interpretation: Normal except: UWBC 20-50; UBACT >50. 09/04 17: Order name: Abo/rh Typing; Complete Time: 18:31 rn 09/04 18:31 Interpretation: Reviewed. 09/04 17: Order name: Basic Metabolic Panel; Complete Time: 19:03 rn 09/04 19:04 Interpretation: Reviewed. 09/04 17: Order name: CBC with Diff; Complete Time: 18:30 rn 09/04 18:30 Interpretation: Abnormal: WBC 16.50; MPV 7.3; MITCH% 75.9; NEUT A 12.5. 09/04 17:04 Order name: Quantitative Hcg; Complete Time: 19:03 rn 09/04 19:04 Interpretation: Abnormal: HCGQ [id number]. 09/04 17:42 Order name: GC (GONORR/CHLAMYDIA) Probe 09/04 17:04 Order name: US Transvaginal Ob; Complete Time: 19:31 rn 09/04 17:42 Order name: Wet Prep 09/04 17:43 Order name: GC (Bill/Chl) Probe CX/URE EDMT 09/04 17:43 Order name: Wet Prep; Complete Time: 20:26 EDMS 09/04 17:59 Order name: Urine --Ancillary (enter results); Complete Time: 20:26 em1 09/04 18:17 Order name: Urine Culture EDMT 09/04 17:04 Order name: Urine Dipstick-Ancillary (obtain specimen); Complete Time: 21:08 rn 09/04 17:04 Order name: Urine Test (obtain specimen); Complete Time: 21:08 rn 09/04 17:04 Order name: IV Saline Lock; Complete Time: 18:06 rn 09/04 17:04 Order name: Labs collected and sent; Complete Time: 18:06 rn 09/04 17:04 Order name: NPO; Complete Time: 21:08 rn 09/04 17:42 Order name: Pelvic Exam Setup; Complete Time: 21:08 cp Administered Medications: 17:55 Drug: Bentyl (dicyclomine) 20 mg Route: PO; sl2 19:30 Follow up: Response: Pain is decreased dc2 17:55 Drug: Tylenol 1000 mg Route: PO; sl2 19:30 Follow up: Response: Pain is decreased dc2 17:55 Drug: NS 0.9% 500 ml Route: IV; Rate: bolus; Site: right antecubital; sl2 19:15 Follow up: IV Status: Completed infusion; IV Intake: 500ml dc2 18:40 Drug: Rocephin (cefTRIAXone) 1 grams Route: IV; Rate: calculated rate; Site: left sl2 antecubital; 19:19 Follow up: Response: No adverse reaction sl2 21:26 Follow up: IV Status: Completed infusion; IV Intake: 10ml dc2 18:40 Drug: Zithromax (azithromycin) 1 grams Route: PO; sl2 19:19 Follow up: Response: No adverse reaction sl2 Point of Care Testing: Urine : 21:00 hCG Reading: Positive; Control Reading: Positive; dc2 Disposition Summary: 09/04/21 20:47 Discharge Ordered Location: Home cp Problem: new cp Symptoms: have improved cp Condition: Stable cp Diagnosis - Threatened cp - UTI/ Urinary tract infection, site not specified cp - Pelvic and perineal pain cp - Low back pain cp Followup: cp - With: Private Physician - When: 1 week - Reason: Recheck today's complaints Discharge Instructions: - Discharge Summary Sheet cp - Abdominal Pain During cp - Pelvic Pain, Female cp - Care cp - Threatened Miscarriage cp - Vaginal Bleeding During , First Trimester cp - and Urinary Tract Infection cp - Activity Restriction During cp Forms: - Medication Reconciliation Form cp - Thank You Letter cp - Antibiotic Education cp - Prescription Opioid Use cp Prescriptions: - 147-iron gluc-folic 13 mg iron- 1 mg Oral tablet - take 1 tablet by ORAL route once daily; 30 tablet; Refills: 0, Product cp Selection Permitted - Macrobid 100 mg Oral Capsule - take 1 capsule by ORAL route every 12 hours for 7 days; 14 capsule; Refills: 0, cp Product Selection Permitted - dicyclomine 20 mg Oral Tablet - take 1 tablet by ORAL route 4 times per day; 30 tablet; Refills: 0, Product cp Selection Permitted Addendum: 09/05/2021 23:49 Co-signature as Attending Physician, Suleiman Oliver MD I agree with the assessment and r n plan of care. Attestation: The patient's history, exam findings, diagnostics, and a summary of any interventions or procedures was reviewed in detail with Rl VANEGAS. Signatures: Dispatcher [employer] EDSuleiman Fontaine MD MD rn Page, Corey, PA PA cp Yoly Haiens RN RN ld1 Anju Lowery RN RN sl2 Surya, Arlen PETERSON dc2 Corrections: (The following items were deleted from the chart) 23:50 23:49 Co-signature as Attending PhysicianSuleiman MD I agree with the director of learning and plan of care. Attestation: The patient's history, exam findings, diagnostics, and a summary of any interventions or procedures was reviewed in detail with Suleiman Oliver MD, rn
--- NOTE | 2021-09-04 20:48 | ER ---
Nurse's Notes [facility] Name: Jennifer Celeste Age: 26 yrs Sex: Female : 1995 Arrival Date: 09/04/2021 Time: 17:03 Bed 18 Private MD: Diagnosis: Threatened ;UTI/ Urinary tract infection, site not specified;Pelvic and perineal pain;Low back pain Presentation: 09/04 17:15 Chief complaint: Patient states: I am about 9 weeks , I started spotting today. ld1 Pt reports blood on toilet paper when going to the bathroom and lower back pain - cramping feeling. Pt reports 5 pregnancies, 1 miscarriage and 1 stillbirth. Coronavirus screen: At this time, the client does not indicate any symptoms associated with coronavirus-19. Ebola Screen: No symptoms or risks identified at this time. Initial Sepsis Screen: Does the patient meet any 2 criteria? No. Patient's initial sepsis screen is negative. Does the patient have a suspected source of infection? No. Patient's initial sepsis screen is negative. Risk Assessment: Do you want to hurt yourself or someone else? Patient reports no desire to harm self or others. Onset of symptoms was September 04, 2021. 17:15 Method Of Arrival: Ambulatory ld1 17:15 Acuity: JONNY 3 ld1 Triage Assessment: 17:17 General: Appears in no apparent distress. comfortable, Behavior is calm, cooperative, ld1 appropriate for age. Pain: Complains of pain in low back area Pain does not radiate. Pain currently is 6 out of 10 on a pain scale. Quality of pain is described as crampy, throbbing, Pain began 3 hours ago. Is continuous. EENT: No signs and/or symptoms were reported regarding the EENT system. Neuro: Level of Consciousness is awake, alert, obeys commands, Oriented to person, place, time, situation. Cardiovascular: Capillary refill < 3 seconds Patient's skin is warm and dry. Respiratory: Airway is patent Respiratory effort is even, unlabored, Respiratory pattern is regular, symmetrical. : Reports vaginal bleeding that is bright red, moderate flow, spotty. 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 - Social history:: Smoking status: Patient denies any tobacco usage or history of. Patient/guardian denies using alcohol. Screenin:30 Abuse screen: Denies threats or abuse. Nutritional screening: No deficits noted. sl2 Tuberculosis screening: No symptoms or risk factors identified. Tuberculosis screening: Never had TB. Possible symptoms: None Risk factors: None. Fall Risk None identified. Assessment: 17:10 Reassessment: Patient AAO X 3, ambulatory with steady gait noted - reports being sl2 approximately 9 weeks and experiencing spotty vaginal bleeding onset today - also experiencing lower back pain / cramping. 17:10 Obstetrical Assessment: General assessment: awake and alert. General: Appears in no sl2 apparent distress. comfortable, well groomed, well developed, Behavior is calm, cooperative. Pain: Complains of pain in back and low back area. Neuro: No deficits noted. 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 Gait is steady, Speech is normal, Facial symmetry appears normal. Cardiovascular: No deficits noted. Respiratory: No deficits noted. GI: No deficits noted. : No deficits noted. No signs and/or symptoms were reported regarding the genitourinary system. EENT: No deficits noted. No signs and/or symptoms were reported regarding the EENT system. Derm: No deficits noted. Derm: No deficits noted. Musculoskeletal: No deficits noted. 18:08 Reassessment: Pelvic ultrasound in progress at bedside. sl2 19:45 Reassessment: Patient appears in no apparent distress at this time. Resting quietly; cc4 drinking sips of xochilt blue with no n/v; voices no complaints; IV infusion complete; VSS. Vital Signs: 17:15 BP 126 / 83; Pulse 73; Resp 20; Temp 98.5(O); Pulse Ox 99% ; Weight 70.76 kg; Height 5 ld1 ft. 1 in. (154.94 cm); Pain 6/10; 17:30 BP 124 / 80; Pulse 75; Resp 16; Temp 98.4(O); Pulse Ox 100% on R/A; sl2 19:45 BP 122 / 71; Pulse 81; Resp 20; Pulse Ox 100% on R/A; cc4 21:15 BP 118 / 72; Pulse 68; Resp 16; Temp 98.3; Pulse Ox 100% ; Pain 2/10; dc2 17:15 Body Mass Index 29.48 (70.76 kg, 154.94 cm) ld1 ED Course: 17:03 Patient arrived in ED. am2 17:17 Triage completed. ld1 17:17 Arm band placed on right wrist. ld1 17:26 Rl Johnston PA is PHCP. cp 17:26 Suleiman Oliver MD is Attending Physician. cp 17:30 Patient has correct armband on for positive identification. Bed in low position. Call sl2 light in reach. 17:38 Anju Lowery, NICHOLAS is Primary Nurse. sl2 17:58 Inserted saline lock: 20 gauge in right antecubital area, using aseptic technique. em1 18:07 Assist provider with pelvic exam: Set up pelvic tray. mh5 18:37 US Transvaginal Ob In Process Unspecified. EDMS 21:00 IV discontinued, intact, bleeding controlled, No redness/swelling at site. Pressure dc2 dressing applied. 21:07 Wet Prep Sent. cc4 21:08 GC (GONORR/CHLAMYDIA) Probe Sent. cc4 Administered Medications: 17:55 Drug: Bentyl (dicyclomine) 20 mg Route: PO; sl2 19:30 Follow up: Response: Pain is decreased dc2 17:55 Drug: Tylenol 1000 mg Route: PO; sl2 19:30 Follow up: Response: Pain is decreased dc2 17:55 Drug: NS 0.9% 500 ml Route: IV; Rate: bolus; Site: right antecubital; sl2 19:15 Follow up: IV Status: Completed infusion; IV Intake: 500ml dc2 18:40 Drug: Rocephin (cefTRIAXone) 1 grams Route: IV; Rate: calculated rate; Site: left sl2 antecubital; 19:19 Follow up: Response: No adverse reaction sl2 21:26 Follow up: IV Status: Completed infusion; IV Intake: 10ml dc2 18:40 Drug: Zithromax (azithromycin) 1 grams Route: PO; sl2 19:19 Follow up: Response: No adverse reaction sl2 Point of Care Testing: Urine : 21:00 hCG Reading: Positive; Control Reading: Positive; dc2 Intake: 19:15 IV: 500ml; Total: 500ml. dc2 21:26 IV: 10ml; Total: 510ml. dc2 Outcome: 20:47 Discharge ordered by MD. cp 21:15 Discharged to home ambulatory. dc2 21:15 Condition: stable 21:15 Discharge instructions given to Instructed on discharge instructions, follow up and referral plans. Demonstrated understanding of instructions, follow-up care, medications, Prescriptions given X 3. 21:26 Patient left the ED. dc2 Signatures: Dispatcher [employer] [place] em1 Rl Johnston PA PA cp Martinez, Maria 5 Mya Alexander 2 Yoly Haines RN RN ld1 Ramya Silverio, RN RN cc4 Arlen London, RN RN dc2 Anju Lowery, RN RN sl2
[2021-09-04 21:31] VITALS: O2SAT 100
[2021-09-04 21:33] VITALS: BP 118/72; TEMP 98.3
[2021-09-06 12:54] LABS: Urine Blood Trace-intact (Negative); Urine Glucose Negative (Negative); Urine Protein Trace (Negative); Urine Specific Gravity >=1.030 (1.005-1.030)
[2021-09-10 12:22] LABS: C.trachomatis RNA,TMA Not Detected (Not Detected)
--- OUTSIDE RECORDS SUMMARY | 2021-09-13 11:44 | XMS REPORT | Continuity of Care Document ---
:1995 Author Organization [facility] t Address [address] [place] [address] Care Team Providers Name Role Phone Pcp, Does Not Have A Primary Care Physician Jaclyn LIZAMA Attending Clinician Unavailable Dl HUGOP, N Attending Clinician DIOR Attending Clinician Unavailable Dior DO Attending Clinician Marta CASE Attending Clinician Unavailable Cisco BERADP, O Attending Clinician Teodora CONTRERAS, C Attending Clinician Doctor Unassigned, Name Attending Clinician Unavailable Payers Payer Name Policy Type Policy Number Effective Date Expiration Date Carrol RASMUSSEN [id number] 2021 HEALTH 00:00:00 Problems Condition Condition Condition Status Onset Resolution Last Treating Co mments Source Name Details Category Date Date Treatment Clinician Date BMI BMI Disease Active 2020-11 Univers 28.0-28.9, 28.0-28.9, -11 it y of adult adult 00:00: [address] Supervisio Supervisio Disease Active 2020-11 U nivers n of high n of high 11-11 ity of risk risk 00:00: [place] 00 Medi terrell in first in first Branch trimester trimester Herpes Herpes Disease Active 2020-11 Univers virus virus 11-11 [place] infection [place] mother [place] 00 Medi terrell during during Branch , , antepartum antepartum History of History of Disease Active 2020-11 U nivers stroke stroke 11-11 ity of 00:00: [address] History of History of Disease Active 2020-11 U nivers blood blood 11-11 ity of transfusio transfusio 00:00: [place] n [facility] Multiparit Multiparit Disease Active 2020-11 U nivers y y 11-11 ity of 00:00: [address] Allergies, Adverse Reactions, Alerts Allergy Allergy Status Severity Reaction(s) Onset Inactive Treating Comm ents Source Name Type Date Date Clinician NO KNOWN Drug Active Univers ALLERGIE Class ity of S [facility] Social History Social Habit Start Date Stop Date Quantity Comments Source ASSERTION 2021-07-23 [facility] 00:00:00 [facility] Exposure to Not sure [facility] SARS-CoV-2 [facility] (event) [place] Tobacco use and 2021-09-11 2021-09-11 Never used Universit y of exposure 00:00:00 00:00:00 [facility] Alcohol intake 2021-09-11 2021-09-11 Ex-drinker [facility] 00:00:00 00:00:00 (finding) [facility] Sex Assigned At [birth year] Universit y of 00:00:00 00:00:00 [facility] Smoking Status Start Date Stop Date Source Unknown if ever smoked Universit y [facility] Never smoker University [facility] [place] Medications Ordered Filled Start Stop Current Ordering Indication Dosage Frequency Signature Comments Components Source Medication Medication Date Date Medication? Clinician (SIG) Name Name WANDA 67-iron 2020-11 Yes [id number] 1{capsu Take 1 Univers ps-folate 11-11 le} capsule by ity of no.1-dha 00:00: mouth [place] (VITAFOL 00 daily. Medical ULTRA) 29 Branch mg iron- 1 mg-200 mg Cap lidocaine-r 2020-11- No 3mL 3 mL, Univ ers acepinep-te 1-10 11-10 Topical, ity of tracaine 18:15: 17:15 ONCE, 1 [place] (L.E.T. 00 :00 dose, On Medical (LIDO-EPINE Wed Branch PH-TETRA)) 09/10/21 4-0.05-0.5 at 1215, % topical Routine gel 3 mL metoclopram 2020-11 Yes 10mg 10 mg, Univ ers caden HCl 1-10 Oral, AC, ity of (REGLAN) 17:30: First dose Daniel as tablet 10 00 on Wed Medical mg 09/10/21 Branch at 1130, Until Discontinu ed, Routine NaCl 0.9% 2020-11- No 1000mL at 999 Uni vers (NS) bolus 1-10 11-10 mL/hr, ity of infusion 17:15: 18:37 1,000 mL, Daniel as 1,000 mL 00 :00 IV Medical Piggyback, Branch ONCE, 1 dose, On Wed09/10/21 at 1115, STAT azithromyci 2020-11- No 1000mg 1,000 mg, Univers n 1-10 11-10 Oral, ity of (ZITHROMAX) 16:15: 15:20 [place]CE, 1 [place] tablet 00 :00 dose, On Medical 1,000 mg Wed Branch 09/10/21 at 1015, CECILIA
Re ason for Anti-Infec tive: Empiric Therapy for Suspected Infection< br>Empiric Therapy Site: Pelvic
Duration of therapy: 72 hours cefTRIAXone 2020-11- No 500mg 500 mg, U nivers (ROCEPHIN) 1-10 11-10 Intramuscu it y of injection 16:15: 17:13 lar, Q24H, [place] 500 mg 00 :29 First dose Medical on Wed Branch 09/10/21 at 1015, Until Discontinu ed, CECILIA
Re ason for Anti-Infec tive: Empiric Therapy for Suspected Infection< br>Empiric Therapy Site: Pelvic
Duration of therapy: 72 hours benzocaine- 2020-11 Yes [id number] 1[in_us Apply 1 Univers lidocaine-t 1-10 ] Inch to ity o f etracaine 00:00: area(s) [place] 20-6-6 % 00 every 4 Medical gel (four) Branch hours as needed for Pain (scale 4-6). phenazopyri 2020-11 Yes [id number] 200mg Take 1 Univers dine 200 mg 1-10 tablet by ity of tablet 00:00: mouth 3 [place] 00 (three) Medical times Branch daily. benzocaine- 2020-11 Yes [id number] 1[in_us Apply 1 Univers lidocaine-t 1-10 ] Inch to ity o f etracaine 00:00: area(s) [place] 20-6-6 % 00 every 4 Medical gel (four) Branch hours as needed for Pain (scale 4-6). phenazopyri 2020-11 Yes [id number] 200mg Take 1 Univers dine 200 mg 1-10 tablet by ity of tablet 00:00: mouth 3 00 (three) Medical times Branch daily. benzocaine- 2020-11 Yes [id number] 1[in_us Apply 1 Univers lidocaine-t 1-10 ] Inch to ity o f etracaine 00:00: area(s) [place] 20-6-6 % 00 every 4 Medical gel (four) Branch hours as needed for Pain (scale 4-6). phenazopyri 2020-11 Yes [id number] 200mg Take 1 Univers dine 200 mg 1-10 tablet by ity of tablet 00:00: mouth 3 00 (three) Medical times Branch daily. cephALEXin 2020-11- Yes [id number] 500mg Take 1 Univers (KEFLEX) 1-10 11-18 capsule by ity of 500 mg 00:00: 05:59 mouth 3 [place] capsule 00 :00 (three) Medical times Branch daily for 7 days. cephALEXin 2020-11- Yes [id number] 500mg Take 1 Univers (KEFLEX) 1-10 11-18 capsule by ity of 500 mg 00:00: 05:59 mouth 3 [place] capsule 00 :00 (three) Medical times Branch daily for 7 days. cephALEXin 2020-11- Yes [id number] 500mg Take 1 Univers (KEFLEX) 1-10 11-18 capsule by ity of 500 mg 00:00: 05:59 mouth 3 [place] capsule 00 :00 (three) Medical times [place] daily for 7 days. valACYclovi 2020-11 Yes TAKE 1 Univ ers r 1 gram 1-08 TABLET BY ity of tablet 00:00: MOUTH [place] 00 THREE Medical TIMES Branch DAILY FOR 7 DAYS. dicyclomine 2020-11 Yes Univer s 20 mg 1-05 ity of tablet 00:00: [place] 00 Medical Branch Nitrofurant 2020-11 Yes Univer s oin&Nit. 1-05 ity of Macrocryst 00:00: [place] 100 mg 00 Medical capsule Branch Atorvastati Atorvastati Yes Will TAKE [address] [facility] n Calcium n Calcium [place] TABLET BY [facility] EVERY DAY l AT BEDTIME Outpati ent Clinics Aspir-81 Aspir-81 Yes Will [address] [facility] Vital Signs Vital Name Observation Time Observation Value Comments Source Systolic blood 2021-09-11 16:06:00 126 mm[Hg] Univer sity of pressure [facility] Diastolic blood 2021-09-11 16:06:00 84 mm[Hg] Unive rsity of [facility] Heart rate 2021-09-11 16:06:00 93 /min [facility] Body temperature 2021-09-11 16:06:00 36.39 [facility] Respiratory rate 2021-09-11 16:06:00 16 /min [facility] Body height 2021-09-11 16:06:00 154.9 cm [facility] Body weight 2021-09-11 16:06:00 68.947 kg [facility] BMI 2021-09-11 16:06:00 28.72 kg/m2 [facility] Systolic blood 2021-09-10 16:36:00 122 mm[Hg] Univer sity of [facility] Diastolic blood 2021-09-10 16:36:00 83 mm[Hg] Unive rsity of [facility] Heart rate 2021-09-10 16:36:00 81 /min [facility] Respiratory rate 2021-09-10 16:36:00 16 /min [facility] acute hospital Oxygen saturation in 2021-09-10 16:36:00 98 /min [facility] Arterial blood by [facility] Pulse oximetry Branch Body temperature 2021-09-10 14:42:00 36.94 [facility] Body height 2021-09-10 14:42:00 154.9 cm [facility] Body weight 2021-09-10 14:42:00 67.132 kg [facility] BMI 2021-09-10 14:42:00 27.96 kg/m2 [facility] Procedures Procedure Date / Time Performed Performing Clinician Sourc e POCT URINALYSIS W/O 2021-09-11 16:01:00 Shantell Lizmaa [facility] SPECIFIC GRAVITY [facility] POCT TEST 2021-09-11 16:00:00 Shantell Lizama [facility] COMP. METABOLIC PANEL 2021-09-10 16:35:00 CarrollMaya [facility] ([id number]) [facility] CBC WITH DIFF 2021-09-10 16:35:00 Carroll [facility] LACTIC ACID WHOLE 2021-09-10 16:35:00 [facility] BLOOD [facility] URINALYSIS 2021-09-10 14:50:00 [facility] NOTICE OF PRIVACY 2021-09-10 14:36:43 Doctor Unassigned, No [facility] ASSIGNMENT OF BENEFITS 2021-09-10 14:11:31 Doctor Unassigned, No [facility] Encounters Start End Encounter Admission Attending Care Care Encounter Source Date/Time Date/Time Type Type Clinicians Facility Department ID 2021-10-09 2021-10-09 Outpatient R [facility] [id number] Univers 09:00:00 09:00:00 [id number] [facility] [place] [facility] 2021-10-09 2021-10-09 Outpatient R [facility] [id number] Univers 09:00:00 09:00:00 [facility] [place] [facility] 2021-09-11 2021-09-11 [facility] [id number] Univers 10:00:00 10:49:56 SHANTELL ity [facility] 2021-09-11 2021-09-11 [facility] [id number] Univers 09:43:16 10:49:56 Shantell Anaya [place] [id number] i ty of Visit [facility] 4.2.7.2.686 Daniel as MATERNAL [phone] Med ical & CHILD [address] [place] [address] 2021-09-11 2021-09-11 Outpatient R DL [facility] [id number] Univers 10:00:00 10:00:00 SHANTELL [id number] lance [facility] 2021-09-10 2021-09-10 Emergency X [facility] ERT [id number] Univers 08:45:00 12:40:00 MAYA lucas [facility] 2021-09-10 2021-09-10 Emergency [facility] [id number] Univers 08:45:00 12:40:[address] [facility] [id number] i ty [place]7.2.[place] [id number] [address] 2021-09-10 2021-09-10 Outpatient R CISCO [facility] [id number] Univers 08:30:00 08:30:00 MEKA lucas o f [facility] 2021-09-10 2021-09-[address] [facility] [id number] Univers 00:00:00 00:00:00 Assessment Meka Lozano [place] [id number] ity of [facility] 4.2.7.2.686 Daniel as MATERNAL [id number] [facility] & CHILD [address] [place] [address] 2021-09-10 2021-09-10 [facility] [id number] Univers 00:00:00 00:00:00 Martha Hernandez [place] 350.1.13.10 ity of [facility] [id number] Daniel as MATERNAL [id number] Med ical & CHILD [address] [place] [address] 2021-09-10 2021-09-10 Orders Doctor DAXA [id number] Univers 00:00:00 00:00:00 Only Unassigned, FRANCISCA 350.1.13.10 ity of [place] [facility] 4.2.7.2.686 Daniel as [id number] [address] 2021-09-08 2021-09-08 Telephone ADRIENNE Lizama [id number] Univers 00:00:00 00:00:00 Shantell Anaya [place] 350.1.13.10 it y of [facility] [id number] Daniel as MATERNAL [phone] Med ical & CHILD 107 [facility] 2020-09-23 2020-09-23 Outpatient [facility] [id number] [facility]00 [facility] 2020-07-15 2020-07-15 [facility] [id number] [facility] [address] 11:00:00 11:00:00 [employer] [place] [facility] ent [facility] Results Test Description Test Time Test Comments Results Result Comments Source POCT URINALYSIS W/O SPECIFIC GRAVITY 2021-09-11 16:01:00 Test Item Value Reference Range Interpretation Comme nts POCT PH U (test code = 3254) 5 mg/dl 5-8 POCT U LEUK EST (test code = 3263) 2+ Negative - Negative POCT U NIT (test code = 3262) Neg Negative - Negative POCT U PROT (test code = 3259) Trace Negative - Negative POCT U GLU (test code = 3256) Neg Negative - Negative POCT U KETONE (test code = 3258) 3+ Negative - Negative POCT U BLD (test code = 3257) Trace Negative - Negative [id number] 16:00:00 Test Item Value Reference Range Interpretation Comments POCT PREG (test code = 1605) Positive On board controls acceptable with C Yes Line (test code = 3574) POCT PREG LOT # (test code = 3575) POCT PREG TEST DATE (test code = 3576) [facility] METABOLIC PANEL (26433)2021-09-10 17:03:31 Test Item Value Reference Range Interpretation Comments NA (test code = 133 mmol/L 135-145 L [id number]) K (test code = 3.8 mmol/L 3.5-5.0 8091010272) CL (test code = 102 mmol/L 98-108 0943430300) CO2 TOTAL (test code = 19 mmol/L 23-31 L 5077767448) AGAP (test code = 2-16 1101494487) BUN (test code = 9 mg/dL 7-23 5160247795) GLUCOSE (test code = 101 mg/dL 70-110 8301401946) CREATININE (test code = 0.55 mg/dL 0.50-1.04 3144848073) TOTAL BILI (test code = 0.6 mg/dL 0.1-1.8 4966151959) CALCIUM (test code = 9.6 mg/dL 8.6-10.6 2235697518) T PROTEIN (test code = 7.8 g/dL 6.3-8.2 5683946951) ALBUMIN (test code = 4.3 g/dL 3.5-5.0 0581245156) ALK PHOS (test code = 72 U/L 34-122 5021492822) ALTv (test code = 60 U/L 5-35 H 1742-6) AST(SGOT) (test code = 39 U/L 13-40 3193816307) eGFR (test code = mL/min/1.73m2 8809613591) FARA (test code = FARA) Association of Glomerular Filtration Rate (GFR) and Staging of Kidney Disease* + --+ --+ ------+| GFR (mL/min/1.73 m2) ?| With Kidney Damage ?| ?Without Kidney Damage+ --------+ --------+ +| ?>90 ?| ?Stage one ?| ? Normal ?+ ---+ ---+ -------+| ?60-89 ?| ?Stage two ?| ? Decreased GFR ? + --+ --+ ------+| ?30-59 ?| ?Stage three ?| ? Stage three ? + --+ --+ ------+| ?15-29 ?| ?Stage four ? | ? Stage four ?+ ---+ ---+ -------+| ?<15 (or dialysis) ? ?| ?Stage five ? | ? Stage five ?+ ---+ ---+ -------+ *Each stage assumes the associated GFR level has been in effect for at least three months. ?Stages 1 to 5, with or without kidney disease, indicate chronic kidney disease. Notes: Determination of stages one and two (with eGFR >59mL/min/1.73 m2) requires estimation of kidney damage for at least three months as defined by structural or functional abnormalities of the kidney, manifested by either:Pathological abnormalities or Markers of kidney damage (including abnormalities in the composition of the blood or urine or abnormalities in imaging tests). Lab Interpretation Abnormal (test code = 33561-6) [facility] WITH [id number] 16:48:08 Test Item Value Reference Range Interpretation Comments WBC (test code = See_Comment H [Automated 4490-2) message] The sy stem which generated this result transmitted reference range : 4.30 - 11.10 10*3/?L. The reference range was not used to interpret this result as normal/abnormal . RBC (test code = See_Comment [Automated 429-8) message] The sy stem which generated this result transmitted reference range : 3.93 - 5.25 10*6/?L. The reference range was not used to interpret this result as normal/abnormal . HGB (test code = 13.3 g/dL 11.6-15.0 718-7) HCT (test code = 37.7 % 35.7-45.2 4544-3) MCV (test code = 87.5 fL 80.6-95.5 787-2) MCH (test code = 30.9 pg 25.9-32.8 785-6) MCHC (test code = 35.3 g/dL 31.6-35.1 H 786-4) RDW-SD (test code = 36.7 fL 39.0-49.9 L 53323-1) RDW-CV (test code = 11.4 % 12.0-15.5 L 788-0) PLT (test code = See_Comment [Automated 777-3) message] The sy stem which generated this result transmitted reference range : 166 - 358 10*3/ ?L. The reference r lennox was not used to interpret this result as normal/abnormal . MPV (test code = 9.0 fL 9.5-12.9 L 77030-6) NRBC/100 WBC (test See_Comment [Automat ed code = 1316897507) message] The system which generated this result transmitted reference range : 0.0 - 10.0 /100 WBCs. The refer ence range was not u sed to interpret th is result as normal/abnormal . NRBC x10^3 (test code <0.01 See_Comment [Auto mated = [id number]) message] The s ystem which generated this result transmitted reference range : 10*3/?L. The reference range was not used to interpret this result as normal/abnormal . GRAN MAT (NEUT) % 73.3 % (test code = 770-8) IMM GRAN % (test code 0.50 % = 5857536318) LYMPH % (test code = 20.6 % 736-9) MONO % (test code = 4.9 % 5905-5) EOS % (test code = 0.2 % 713-8) BASO % (test code = 0.5 % 706-2) GRAN MAT x10^3(ANC) 9.75 10*3/uL 1.88-7.09 H (test code = 2572478915) IMM GRAN x10^3 (test 0.06 10*3/uL 0.00-0.06 code = 5759135889) LYMPH x10^3 (test code 2.73 10*3/uL 1.32-3.29 = 731-0) MONO x10^3 (test code 0.65 10*3/uL 0.33-0.92 = 742-7) EOS x10^3 (test code = <0.03 0.03-0.39 L 711-2) BASO x10^3 (test code 0.06 10*3/uL 0.01-0.07 = 704-7) Lab Interpretation Abnormal (test code = 57333-7) [facility] BranchLactic Acid Whole [id number] 16:41:43 Test Item Value Reference Range Interpretation Comments LACTIC ACID (test code = 1.17 mmol/L 0.50-2.20 0711241380) Lab Interpretation (test code = Normal 52485-4) [facility]"
== END 2021-09-04 21:26 | disposition home or self-care (01) ==
LOC: ER 17:01
DX: O20.0 Threatened abortion (principal); O23.41 Unspecified infection of urinary tract in pregnancy, first trimester; Z3A.09 9 weeks gestation of pregnancy
CPT/HCPCS: 96365; 96361; 87088; 85025; 87086; 80048; 36415; 86900; 81025; 86901; 87210; 84702; 87590; 87490; 76817; 99284; 96366; J7040; J0696; 81003; 81015

== ENCOUNTER 2021-09-07 14:58 | Emergency (ER) | payer OTHER ==
[2021-09-07] MEDS ORDERED: ACETAMINOPHEN 500 MG TAB ONE (16:22)
[2021-09-07] MEDS ORDERED: VALACYCLOVIR 500 MG TAB ONE (16:22)
--- NOTE | 2021-09-07 16:29 | ER ---
Nurse's Notes [facility] Name: Jennifer Celeste Age: 26 yrs Sex: Female : 1995 Arrival Date: 09/07/2021 Time: 15:00 Bed 2 Private MD: Diagnosis: Herpesviral infection, unspecified Presentation: 09/07 15:10 Chief complaint: Patient states: i came a few days ago thinking i was having a tw2 miscarriage. the doctor told me i have an std. he treatment me for an std because he thought it was an std. and there so much pain in my vagina. i cant urinate without screaming. i dont know what this pain is. i cant tolerate it anymore. Coronavirus screen: At this time, the client does not indicate any symptoms associated with coronavirus-19. Ebola Screen: Patient denies travel to an Ebola-affected area in the 21 days before illness onset. Initial Sepsis Screen: Does the patient meet any 2 criteria? HR > 90 bpm. No. Patient's initial sepsis screen is negative. Does the patient have a suspected source of infection? No. Patient's initial sepsis screen is negative. Risk Assessment: Do you want to hurt yourself or someone else? Patient reports no desire to harm self or others. Onset of symptoms was September 07, 2021. 15:10 Method Of Arrival: Ambulatory tw2 15:10 Acuity: JONNY 2 tw2 Triage Assessment: 15:13 General: Appears uncomfortable, well groomed, Behavior is cooperative, crying. Pain: tw2 Complains of pain in vaginal area. GI: Reports it is unbearable and i scream when i urinate. 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 - Social history:: Smoking status: Patient denies any tobacco usage or history of. Screenin:52 Abuse screen: Denies threats or abuse. Denies injuries from another. Nutritional vg1 screening: No deficits noted. Tuberculosis screening: No symptoms or risk factors identified. Fall Risk No fall in past 12 months (0 pts). No secondary diagnosis (0 pts). No IV (0 pts). Ambulatory Aid- None/Bed Rest/Nurse Assist (0 pts). Gait- Normal/Bed Rest/Wheelchair (0 pts) Mental Status- Oriented to own ability (0 pts). Total Narayanan Fall Scale indicates No Risk (0-24 pts). Assessment: 15:49 General: Appears in no apparent distress. uncomfortable, Behavior is calm, cooperative. vg1 Pain: Complains of pain in vagina Pain currently is 10 out of 10 on a pain scale. Quality of pain is described as burning, tender, stinging. Neuro: Level of Consciousness is awake, alert, obeys commands, Oriented to person, place, time, situation. Cardiovascular: Patient's skin is warm and dry. Respiratory: Airway is patent Respiratory effort is even, unlabored, Respiratory pattern is regular. GI: Bowel sounds present X 4 quads. : Blisters noted Swelling noted at vaginal opening Reports burning with urination, vaginal pain and tenderness. EENT: No signs and/or symptoms were reported regarding the EENT system. Derm: Skin is intact, is healthy with good turgor. Musculoskeletal: Circulation, motion, and sensation intact. Vital Signs: 15:10 BP 107 / 77; Pulse 100; Resp 17; Temp 99.2(TE); Pulse Ox 100% on R/A; Weight 69.4 kg; tw2 Height 5 ft. 1 in. (154.94 cm); Pain 10/10; 15:52 BP 147 / 98; Pulse 103; Resp 18; Pulse Ox 98% ; vg1 16:33 BP 127 / 74; Pulse 90; Resp 16; Pulse Ox 100% ; vg1 15:10 Body Mass Index 28.91 (69.40 kg, 154.94 cm) tw2 ED Course: 15:00 Patient arrived in ED. ds1 15:12 Triage completed. tw2 15:13 Arm band placed on. tw2 15:33 Luz Elena Mccarty FNP-C is [facility]. kb 15:33 Landon Cochran MD is Attending Physician. kb 15:40 Jenniffer Laird, RN is Primary Nurse. vg1 15:52 Patient has correct armband on for positive identification. Placed in gown. Bed in low vg1 position. Call light in reach. Side rails up X 1. 16:34 No provider procedures requiring assistance completed. Patient did not have IV access vg1 during this emergency room visit. Administered Medications: 16:32 Drug: valACYclovir 1000 mg Route: PO; vg1 16:35 Follow up: Response: Medication administered at discharge. vg1 16:32 Drug: Tylenol 1000 mg Route: PO; vg1 16:35 Follow up: Response: Medication administered at discharge. vg1 Outcome: 16:29 Discharge ordered by . kb 16:34 Discharged to home ambulatory. vg1 16:34 Condition: stable 16:34 Discharge instructions given to patient, Instructed on discharge instructions, follow up and referral plans. medication usage, Demonstrated understanding of instructions, follow-up care, medications, Prescriptions given X 1. 16:37 Patient left the ED. vg1 Signatures: Luz Elena Mccarty, FINANCIAL OPERATIONS CLERK-C FINANCIAL OPERATIONS CLERK-Lina Rueda ds1 Claudette Hernandez, RN RN tw2 Jenniffer Laird, RN RN vg1
--- NOTE | 2021-09-07 16:30 | EDPHYS ---
Physician Documentation [facility] Name: Jennifer Celeste Age: 26 yrs Sex: Female : 1995 Arrival Date: 09/07/2021 Time: 15:00 Bed 2 Private MD: ED Physician Landon Cochran HPI: 09/07 16:27 This 26 yrs old Female presents to ER via Ambulatory with complaints of kb Vaginal Pain, Abdominal Pain. 16:08 Pt reports external vaginal pain that is worse when anything touches it, when she kb urinates, when she sits. Denies abd pain, vaginal bleeding/discharge. Pt was seen here on , had urethral swabs, pelvic exam, blood work, urine and US done. urethral swab still pending. Pt is 8 weeks . 16:27 The patient presents with external vaginal pain. Onset: The symptoms/episode kb began/occurred 3 day(s) ago. Modifying factors: The symptoms are alleviated by nothing, the symptoms are aggravated by movement, pressure, walking, urinating. Associated signs and symptoms: The patient has no apparent associated signs or symptoms. Severity of symptoms: At their worst the symptoms were moderate, in the emergency department the symptoms are unchanged. The patient has not experienced similar symptoms in the past. The patient has not recently seen a physician. 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 - Social history:: Smoking status: Patient denies any tobacco usage or history of. ROS: 16:26 Constitutional: Negative for fever, chills, and weight loss. kb 16:26 : Positive for external vaginal pain. 16:26 All other systems are negative. Exam: 16:26 Constitutional: This is a well developed, well nourished patient who is awake, alert, kb and in no acute distress. Head/Face: Normocephalic, atraumatic. ENT: Moist Mucous membranes Respiratory: Respirations even and unlabored. No increased work of breathing, no retractions or nasal flaring. Skin: Warm, dry with normal turgor. Normal color. MS/ Extremity: Pulses equal, no cyanosis. Neurovascular intact. Full, normal range of motion. Neuro: Awake and alert, GCS 15, oriented to person, place, time, and situation. Moves all extremities. Normal gait. Psych: Awake, alert, with orientation to person, place and time. Behavior, mood, and affect are within normal limits. 16:26 : Pelvic Exam: External exam: reveals ulcerations on external genitalia, no appreciated Bartholin's cyst, no erythema, not excoriated, no evidence of foreign body, no lesions, no warts seen, bimanual exam reveals normal findings, discharge, is not appreciated, the nurse was present for the exam. Vital Signs: 15:10 BP 107 / 77; Pulse 100; Resp 17; Temp 99.2(TE); Pulse Ox 100% on R/A; Weight 69.4 kg; tw2 Height 5 ft. 1 in. (154.94 cm); Pain 10/10; 15:52 BP 147 / 98; Pulse 103; Resp 18; Pulse Ox 98% ; vg1 16:33 BP 127 / 74; Pulse 90; Resp 16; Pulse Ox 100% ; vg1 15:10 Body Mass Index 28.91 (69.40 kg, 154.94 cm) tw2 MDM: 15:33 Patient medically screened. kb 16:09 Data reviewed: vital signs, nurses notes. Data interpreted: Pulse oximetry: on room air kb is 98 %. Interpretation: normal. Counseling: I had a detailed discussion with the patient and/or guardian regarding: the historical points, exam findings, and any diagnostic results supporting the discharge/admit diagnosis, the need for outpatient follow up, an OB/Gyne specialist, to return to the emergency department if symptoms worsen or persist or if there are any questions or concerns that arise at home. ED course: Tenderness upon palpation of external vaginal area. No redness, swelling, drainage/discharge or warmth noted. Small ulcerations noted to vaginal area. Pt educated on possibility of herpes simplex, but also that it could be something else. Pt will be going to her first OB appt soon and will request test at that time. Will start pt on Valtrex today for management until tested. . Administered Medications: 16:32 Drug: valACYclovir 1000 mg Route: PO; vg1 16:35 Follow up: Response: Medication administered at discharge. vg1 16:32 Drug: Tylenol 1000 mg Route: PO; vg1 16:35 Follow up: Response: Medication administered at discharge. vg1 Disposition Summary: 09/07/21 16:29 Discharge Ordered Location: Home kb Condition: Stable kb Diagnosis - Herpesviral infection, unspecified kb Followup: kb - With: Emergency Department - When: As needed - Reason: Worsening of condition Followup: kb - With: Private Physician - When: 2 - 3 days - Reason: Recheck today's complaints, Continuance of care, Re-evaluation by your physician Discharge Instructions: - Discharge Summary Sheet kb - Genital Herpes kb Forms: - Medication Reconciliation Form kb - Thank You Letter kb - Antibiotic Education kb - Prescription Opioid Use kb - Work release form eb Prescriptions: - Valtrex 1 gram Oral tablet - take 1 tablet by ORAL route 3 times per day for 7 days; 21 tablet; Refills: 0, kb Product Selection Permitted Addendum: 09/09/2021 08:36 Co-signature as Attending Physician, Landon Cochran MD I agree with the assessment and s p3 plan of care. Signatures: Luz Elena Mccarty, BREA-C LOADING CHECKER-Claudette Guido RN RN tw2 Jenniffer Laird RN RN vg1 Landon Cochran MD MD sp3 Corrections: (The following items were deleted from the chart) 09/07 16:25 16:09 ED course: Tenderness upon palpation of external vaginal area. No redness, kb swelling, drainage/discharge or warmth noted. Small ulcerations noted to vaginal area. Pt educated on possibility of herpes simplex. Pt will be going to her first OB appt soon and will request test at that time. Will start pt on Valtrex today for management.. kb 16:26 16:09 ED course: Tenderness upon palpation of external vaginal area. No redness, kb swelling, drainage/discharge or warmth noted. Small ulcerations noted to vaginal area. Pt educated on possibility of herpes simplex. Pt will be going to her first OB appt soon and will request test at that time. Will start pt on Valtrex today for management until tested. . kb 16:28 16:08 Pt reports external vaginal pain that is worse when anything touches it, when she kb urinates, when she sits. Denies abd pain, vaginal bleeding/discharge. . kb
[2021-09-07 17:03] VITALS: TEMP 99.2
[2021-09-07 17:05] VITALS: BP 127/74; O2SAT 100
--- OUTSIDE RECORDS SUMMARY | 2021-09-13 15:38 | XMS REPORT | Continuity of Care Document ---
:1995 Author Organization [facility] t Address [address] [place] [address] Care Team Providers Name Role Phone Pcp, Does Not Have A Primary Care Physician Jaclyn LIZAMA Attending Clinician Unavailable Dl HUGOP, N Attending Clinician DIOR Attending Clinician Unavailable Dior DO Attending Clinician Marta CASE Attending Clinician Unavailable Cisco BEARDP, O Attending Clinician Teodora CONTRERAS, C Attending Clinician Doctor Unassigned, Name Attending Clinician Unavailable Payers Payer Name Policy Type Policy Number Effective Date Expiration Date Carrol RASMUSSEN [id number] 2021 HEALTH 00:00:00 Problems Condition Condition Condition Status Onset Resolution Last Treating Co mments Source Name Details Category Date Date Treatment Clinician Date BMI BMI Disease Active 2020-11 Univers 28.0-28.9, 28.0-28.9, -11 it y of adult adult 00:00: [address] Supervisio Supervisio Disease Active 2020-11 U nivers n of high n of high 11-11 ity of risk risk 00:00: [place] 00 Medi terrell in first in first Branch trimester trimester Herpes Herpes Disease Active 2020-11 Univers virus virus 11-11 [place] infection [place] Med[place] ter[place] during during Branch , , antepartum antepartum History of History of Disease Active 2020-11 U nivers stroke stroke 11-11 ity of 00:00: [address] History of History of Disease Active 2020-11 U nivers blood blood 11-11 ity of transfusio transfusio 00:00: Te manuel n n [facility] Multiparit Multiparit Disease Active 2020-11 U nivers y y 11-11 ity of 00:00: [address] Allergies, Adverse Reactions, Alerts Allergy Allergy Status Severity Reaction(s) Onset Inactive Treating Comm ents Source Name Type Date Date Clinician NO KNOWN Drug Active Univers ALLERGIE Class ity of S [facility] [place] Social History Social Habit Start Date Stop Date Quantity Comments Source ASSERTION 2021-07-23 [facility] 00:00:00 [facility] [place] Exposure to Not sure [facility] SARS-CoV-2 [facility] (event) [place] Tobacco use and 2021-09-11 2021-09-11 Never used Universit y of exposure 00:00:00 00:00:00 [facility] [place] Alcohol intake 2021-09-11 2021-09-11 Ex-drinker [facility] 00:00:00 00:00:00 (finding) [facility] [place] Sex Assigned At [birth year] Universit y of 00:00:00 00:00:00 [facility] [place] Smoking Status Start Date Stop Date Source Unknown if ever smoked Universit y [facility] Never smoker University [facility] Medications Ordered Filled Start Stop Current Ordering Indication Dosage Frequency Signature Comments Components Source Medication Medication Date Date Medication? Clinician (SIG) Name Name WANDA 67-iron 2020-11 Yes [id number] 1{capsu Take 1 Univers ps-folate 11-11 le} capsule by ity of no.1-dha 00:00: mouth [place] (VITAFOL 00 daily. Medical ULTRA) 29 Branch [...] of therapy: 72 hours benzocaine- 2020-11 Yes [id number] 1[in_us Apply 1 Univers lidocaine-t 1-10 ] Inch to ity o f etracaine 00:00: area(s) [place] 20-6-6 % 00 every 4 Medical gel (four) Branch hours as needed for Pain (scale 4-6). phenazopyri 2020-11 Yes [id number] 200mg Take 1 Univers dine 200 mg 1-10 tablet by ity of tablet 00:00: mouth 3 [place] 00 (three) Medical times Branch daily. benzocaine- 2020-11 Yes [id number] 1[in_us Apply 1 Univers lidocaine-t 1-10 ] Inch to ity o f etracaine 00:00: area(s) [place] 20-6-6 % 00 every 4 Medical gel (four) Branch hours as needed for Pain (scale 4-6). phenazopyri 2020-11 Yes [id number] 200mg Take 1 Univers dine 200 mg 1-10 tablet by ity of tablet 00:00: mouth 3 00 (three) Medical times Branch daily. benzocaine- 2020-11 Yes [id number] 1[in_us Apply 1 Univers lidocaine-t 1-10 ] Inch to ity o f etracaine 00:00: area(s) [place] 20-6-6 % 00 every 4 Medical gel (four) Branch hours as needed for Pain (scale 4-6). phenazopyri 2020-11 Yes [id number] 200mg Take 1 Univers dine 200 mg 1-10 tablet by ity of tablet 00:00: mouth 3 00 (three) Medical times Branch daily. cephALEXin 2020-11- Yes [id number] 500mg Take 1 Univers (KEFLEX) 1-10 11-18 capsule by ity of 500 mg 00:00: 05:59 mouth 3 [place] capsule 00 :00 (three) Medical times Branch daily for 7 days. cephALEXin 2020-11- Yes [id number] 500mg Take 1 Univers (KEFLEX) 1-10 11-18 capsule by ity of 500 mg 00:00: 05:59 mouth 3 [place] capsule 00 :00 (three) Medical times Branch daily for 7 days. cephALEXin 2020-11- Yes [id number] 500mg Take 1 Univers (KEFLEX) 1-10 11-18 capsule by ity of 500 mg 00:00: 05:59 mouth 3 [place] capsule 00 :00 (three) Medical times [place] daily for 7 days. valACYclovi 2020-11 Yes [...] [facility] Vital Signs Vital Name Observation Time Observation Value Comments Source Systolic blood 2021-09-11 16:06:00 126 mm[Hg] Univer sity of pressure [facility] [place] Diastolic blood 2021-09-11 16:06:00 84 mm[Hg] Unive rsity of [facility] Heart rate 2021-09-11 16:06:00 93 /min [facility] Body temperature 2021-09-11 16:06:00 36.39 [facility] Respiratory rate 2021-09-11 16:06:00 16 /min [facility] Body height 2021-09-11 16:06:00 154.9 cm [facility] Body weight 2021-09-11 16:06:00 68.947 kg [facility] BMI 2021-09-11 16:06:00 28.72 kg/m2 [facility] Systolic blood 2021-09-10 16:36:00 122 mm[Hg] Univer sity of [facility] Diastolic blood 2021-09-10 16:36:00 83 mm[Hg] Unive rsity of [facility] Heart rate 2021-09-10 16:36:00 81 /min [facility] Respiratory rate 2021-09-10 16:36:00 16 /min [facility] Oxygen saturation in 2021-09-10 16:36:00 98 /min [facility] Arterial blood by [facility] Pulse oximetry Branch Body temperature 2021-09-10 14:42:00 36.94 Elysia [facility] Body height 2021-09-10 14:42:00 154.9 cm [facility] Body weight 2021-09-10 14:42:00 67.132 kg [facility] BMI 2021-09-10 14:42:00 27.96 kg/m2 [facility] Procedures Procedure Date / Time Performed Performing Clinician Sourc e POCT URINALYSIS W/O 2021-09-11 16:01:00 Shantell Lizama [facility] SPECIFIC GRAVITY [facility] POCT TEST 2021-09-11 16:00:00 Shantell Lizama [facility] COMP. METABOLIC PANEL 2021-09-10 16:35:00 [place] [facility] ([id number]) [facility] CBC WITH DIFF 2021-09-10 16:35:[address] [facility] LACTIC ACID WHOLE 2021-09-10 16:35:00 [facility] BLOOD [facility] URINALYSIS 2021-09-10 14:50:00 [facility] NOTICE OF PRIVACY 2021-09-10 14:36:43 Doctor Unassigned, No [facility] ASSIGNMENT OF BENEFITS 2021-09-10 14:11:31 Doctor Unassigned, No [facility] Encounters Start End Encounter Admission Attending Care Care Encounter Source Date/Time Date/Time Type Type Clinicians Facility Department ID 2021-10-09 2021-10-09 Outpatient R [facility] [id number] Univers 09:00:00 09:00:00 [id number] [facility] 2021-10-09 2021-10-09 Outpatient R [facility] [id number] Univers 09:00:00 09:00:00 [facility] 2021-09-11 2021-09-11 [facility] [id number] Univers 10:00:00 10:49:56 SHANTELL ity [facility] 2021-09-11 2021-09-11 Initial DlRUST [id number] Univers 09:43:16 10:49:56 Shantell Anaya [employer]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 350.1.13.10 i ty of Visit [facility] 4.2.7.2.686 Daniel as MATERNAL [phone] Med ical & CHILD [address] [place] [address] 2021-09-11 2021-09-11 Outpatient R DL [facility] [id number] Univers 10:00:00 10:00:00 SHANTELL [id number] lance [facility] 2021-09-10 2021-09-10 Emergency X RUST ERT [id number] Univers 08:45:00 12:40:00 MAYA lucas [facility] 2021-09-10 2021-09-10 Emergency RUST [id number] Univers 08:45:00 12:40:00 [facility] 350.1.13.10 i ty of [place] 4.2.7.2.[place] [id number] [address] 2021-09-10 2021-09-10 Outpatient R CISCO [facility] [id number] Univers 08:30:00 08:30:00 MEKA lucas o f [facility] [place] 2021-09-10 2021-09-10 Clinic [facility] [id number] Univers 00:00:00 00:00:00 Assessment Meka Lozano 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 350.1.13.10 ity of [facility] 4.2.7.2.686 Daniel as MATERNAL [id number] [facility] & CHILD [address] [place] [address] 2021-09-10 2021-09-10 Telephone TeodoraRUST [id number] Univers 00:00:00 00:00:00 Martha Hernandez SH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 350.1.13.10 ity of [facility] 4.2.7.2.686 Daniel as MATERNAL [id number] Med ical & CHILD [address] [place] [address] 2021-09-10 2021-09-10 Orders Doctor DAXA [id number] Univers 00:00:00 00:00:00 Only Unassigned, FRANCISCA 350.1.13.10 ity of [place] [facility] 4.2.7.2.686 Daniel as [id number] [address] 2021-09-08 2021-09-08 Telephone ADRIENNE Lizama [id number] Univers 00:00:00 00:00:00 Shantell Anaya SH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 350.1.13.10 it y of [facility] 4.2.7.2.686 Daniel as MATERNAL [id number] Med ical & CHILD 107 [facility] 2020-09-23 2020-09-23 Outpatient STLMLC [facility]MLC [id number] [facility] 00[facility]00 [facility] 2020-07-15 2020-07-15 [id number] [facility] [address] 11:00:00 11:00:00 [employer] [place] [facility] ent [facility] Results Test Description Test Time Test Comments [...] code = 3257) Trace Negative - Negative [id number] 16:00:00 Test Item Value Reference Range Interpretation Comments POCT PREG (test code = 1605) Positive On board controls acceptable with C Yes Line (test code = 3574) POCT PREG LOT # (test code = 3575) POCT PREG TEST DATE (test code = 3576) [facility]. METABOLIC PANEL (47494)2021-09-10 17:03:31 Test Item Value Reference Range Interpretation Comments NA (test code = 133 mmol/L 135-145 L [id number]) K (test code = 3.8 mmol/L 3.5-5.0 4599815524) CL (test code = 102 mmol/L 98-108 7353046405) CO2 TOTAL (test code = 19 mmol/L 23-31 L 5786123070) AGAP (test code = 2-16 0385544626) BUN (test code = 9 mg/dL 7-23 3162876642) GLUCOSE (test code = 101 mg/dL 70-110 4628607687) CREATININE (test code = 0.55 mg/dL 0.50-1.04 6641744153) TOTAL BILI (test code = 0.6 mg/dL 0.1-1.2 3822836348) CALCIUM (test code = 9.6 mg/dL 8.6-10.6 7831233703) T PROTEIN (test code = 7.8 g/dL 6.3-8.2 5721755163) ALBUMIN (test code = 4.3 g/dL 3.5-5.0 7101994044) ALK PHOS (test code = 72 U/L 34-122 7124633982) ALTv (test code = 60 U/L 5-35 H 1742-6) AST(SGOT) (test code = 39 U/L 13-40 7104168849) eGFR (test code = mL/min/1.73m2 0348936961) FARA (test code = FARA) Association of [...] tests). Lab Interpretation Abnormal (test code = 91028-6) [facility] WITH [id number] 16:48:08 Test Item Value Reference Range Interpretation Comments WBC (test code = See_Comment H [Automated 8590-2) message] The sy stem which generated this result transmitted reference range : 4.30 - 11.10 10*3/?L. The reference range was not used to interpret this result as normal/abnormal . RBC (test code = See_Comment [Automated 629-8) message] The sy stem which generated this [...] (test code = 36.7 fL 39.0-49.9 L 03283-4) RDW-CV (test code = 11.4 % 12.0-15.5 L 788-0) PLT (test code = See_Comment [Automated 777-3) message] The sy stem which generated this result transmitted reference range : 166 - 358 10*3/ ?L. The reference r lennox was not used to interpret this result as normal/abnormal . MPV (test code = 9.0 fL 9.5-12.9 L 09121-8) NRBC/100 WBC (test See_Comment [Automat ed code = 7621973256) message] The system which generated this result transmitted reference range : 0.0 - 10.0 /100 WBCs. The refer ence range was not u sed to interpret th is result as normal/abnormal . NRBC x10^3 (test code <0.01 See_Comment [Auto mated = 0423609279) message] The s ystem which generated this result transmitted reference range : 10*3/?L. The reference range was not used to interpret this result as normal/abnormal . GRAN MAT (NEUT) % 73.3 % (test code = 770-8) IMM GRAN % (test code 0.50 % = 3508697734) LYMPH % (test code = 20.6 % 736-9) MONO % (test code = 4.9 % 5905-5) EOS % (test code = 0.2 % 713-8) BASO % (test code = 0.5 % 706-2) GRAN MAT x10^3(ANC) 9.75 10*3/uL 1.88-7.09 H (test code = 0148930798) IMM GRAN x10^3 (test 0.06 10*3/uL 0.00-0.06 code = 8252026393) LYMPH x10^3 (test code 2.73 10*3/uL 1.32-3.29 = 731-0) MONO x10^3 (test code 0.65 10*3/uL 0.33-0.92 = 742-7) EOS x10^3 (test code = <0.03 0.03-0.39 L 711-2) BASO x10^3 (test code 0.06 10*3/uL 0.01-0.07 = 704-7) Lab Interpretation Abnormal (test code = 87633-0) [facility] BranchL[facility] Acid Whole [id number] 16:41:43 Test Item Value Reference Range Interpretation Comments LACTIC ACID (test code = 1.17 mmol/L 0.50-2.20 5741618186) Lab Interpretation (test code = Normal 34990-3) [facility]"
== END 2021-09-07 16:37 | disposition home or self-care (01) ==
LOC: ER 14:58
DX: A60.00 Herpesviral infection of urogenital system, unspecified (principal)
CPT/HCPCS: 99283